=== PATIENT | female | born 1945 | race American Indian/Alaskan Native ===

== ENCOUNTER 2017-10-31 07:56 | Day surgery (SDC) | payer MEDICARE ==
[2017-10-31] MEDS ORDERED: HURRICAINE ONE 20% TOPICAL SPRAY MM NR (09:00)
[2017-10-31 09:08] LABS: Basophils % (Auto) 0.7 % (0.0-1.8); Eosinophils # (Auto) 0.1 K/mm3 (0.0-0.4); Eosinophils % (Auto) 1.4 % (0.0-4.3); Hematocrit 39.3 % (30.3-42.9); Hemoglobin 13.3 gm/dl (10.1-14.3); Lymphocytes # (Auto) 1.5 K/mm3 (1.2-5.4); Lymphocytes % (Auto) 20.2 % (13.4-35.0); Mean Corpuscular HGB Conc 34 % (30-34); Mean Corpuscular Hemoglobin 32 pg (28-32); Mean Corpuscular Volume 94 fl (79-97); Monocytes # (Auto) 0.5 K/mm3 (0.0-0.8); Monocytes % (Auto) 7.1 % (0.0-7.3); Platelet Count 240 K/mm3 (140-440); Red Blood Count 4.17 M/mm3 (3.65-5.03); Red Cell Distribution Width 14.2 % (13.2-15.2)
[2017-10-31 09:19] LABS: INR 1.54 (0.87-1.13)
[2017-10-31 09:20] LABS: Partial Thromboplastin Time 38.5 Sec. (24.2-36.6)
[2017-10-31] MEDS ORDERED: VERSED IV ONE (09:30)
[2017-10-31] MEDS ORDERED: SUBLIMAZE IV ONE (09:30)
[2017-10-31] MEDS ORDERED: NACL 0.9% 500 ML 500 ML IV SCH (10:00)
[2017-10-31] MEDS ORDERED: DIPRIVAN 10 MG/ML IV ONE ×2 (10:36→10:37)
--- NOTE | 2017-10-31 12:12 | Short Stay Summary ---
Short Stay Documentation Date of service: 10/31/17 - History H&P: obtained from office - Allergies and Medications Current Medications: Allergies azilsartan Adverse Reaction (Verified 10/31/17 09:09) Unknown Home Medications Medication Instructions Recorded Confirmed Last Taken Type Hydrocodone Bit/Acetaminophen 1 each PO Q8H PRN 06/29/13 10/31/17 06/29/13 History [Vicodin 5/500] Aspirin [Aspirin BABY CHEW TAB] 81 mg PO DAILY #100 tab.chew 07/01/13 10/31/17 10/30/17 Rx 81mg Valsartan [Diovan] 320 mg PO QDAY 07/18/14 10/31/17 10/30/17 History 320mg ALBUTEROL Inhaler [ProAir HFA 2 puff IH QID PRN #1 inha 07/22/14 10/31/17 Rx Inhaler] 2 Citalopram Hydrobromide [celeXA] 40 mg PO DAILY #30 tablet 07/22/14 10/31/1712/16 Rx 40mg Furosemide [Lasix TAB] 40 mg PO QDAY #30 tablet 07/22/14 10/31/17 10/30/17 Rx 40mg Metoprolol [Lopressor TAB] 25 mg PO Q24HR #30 tablet 07/22/14 10/31/17 10/30/17 Rx 25mg Potassium Chloride 20 meq PO QDAY #30 tab 07/22/14 10/31/17 10/30/17 Rx 20meq Simvastatin 20 mg PO QDAY #30 tablet 07/22/14 10/31/17 10/30/17 Rx 20mg Warfarin [Coumadin] 5 mg PO DAILY 10/31/17 10/31/17 10/30/17 History 5mg amLODIPine [Norvasc] 10 mg PO DAILY 10/31/17 10/31/17 10/30/17 History 10mg Active Medications Sodium Chloride (Nacl 0.9% 500 Ml) 500 mls @ 50 mls/hr IV DIRECT FATEMEH - Physical exam General appearance: no acute distress Integumentary: no rash HEENT: Atraumatic Lungs: Clear to auscultation Breasts: deferred Heart: Regular rate Gastrointestinal: normal Female Genitourinary: deferred Rectal Exam: deferred Extremities: no ischemia Neurological: Normal gait - Brief post op/procedure progress note Date of procedure: 10/31/17 Pre-op diagnosis: MR Post-op diagnosis: same Procedure: BANDAR Anesthesia: MAC Findings: See report Surgeon: HILARIO HERNÁNDEZ Estimated blood loss: none Pathology: none Condition: stable - Hospital course Hospital course: Uneventful - Disposition Condition at discharge: Good Disposition: DC-01 TO HOME OR SELFCARE Short Stay Discharge Plan Activity: advance as tolerated Weight Bearing Status: Weight Bear as Tolerated Diet: low fat, low cholesterol, low salt Follow up with: MITCHEL SALMERON MD [Primary Care Provider] - 7 Days
[2017-10-31 13:00] VITALS: BP 152/79
--- NOTE | 2017-10-31 16:21 | Anesthesia Consultation ---
Anesthesia Consult and Med Hx Date of service: 10/31/17 - Airway Anesthetic Teeth Evaluation: Good ROM Head & Neck: Adequate Mental/Hyoid Distance: Adequate Mallampati Class: Class II Intubation Access Assessment: Probably Good - Pulmonary Exam CTA: Yes - Cardiac Exam Cardiac Exam: RRR - Pre-Operative Health Status ASA Pre-Surgery Classification: ASA3 Proposed Anesthetic Plan: MAC - Pre-Anesthesia Comment Pre-Anesthesia Comments: EF 60% - Pulmonary SOB: Yes Hx Sleep Apnea: Yes (pulm htn) - Cardiovascular System Hx Hypertension: Yes Hx Pacemaker: Yes Hx Valvular Heart Disease: Yes (MR ) Hx Heart Murmur: Yes - Central Nervous System CVA: Yes - Gastrointestinal Hx Gastroesophageal Reflux Disease: Yes
--- NOTE | 2017-10-31 16:22 | Anesthesia Day of Surgery ---
Anesthesia Day of Surgery - Day of Surgery Patient Examined: Yes Patient H&P Reviewed: Yes Patient is NPO: Yes Beta Blockers: Yes
== END 2017-10-31 13:14 | disposition home or self-care (01) ==
LOC: CATHLABREC 07:56 → EDSTATUS 08:30 → CATHLABREC 13:14
PROVIDERS: ATTEND Internal Medicine
DX: I34.0 Nonrheumatic mitral (valve) insufficiency (principal); I10 Essential (primary) hypertension; I27.20 Pulmonary hypertension, unspecified; G47.30 Sleep apnea, unspecified; K21.9 Gastro-esophageal reflux disease without esophagitis; Z95.0 Presence of cardiac pacemaker; Z79.01 Long term (current) use of anticoagulants; Z86.73 Personal history of transient ischemic attack (TIA), and cerebral infarction without residual deficits
CPT/HCPCS: 36415; 85025; 85610; 85730; 93312; 93320; 93325; J2704; J7040

== ENCOUNTER 2019-02-01 10:37 | Emergency (ER) | payer MEDICARE ==
--- NOTE | 2019-02-01 11:43 | Emergency Department Report ---
HPI - General Chief Complaint: Arrhythmia/Palpitations Time Seen by Provider: 02/01/19 11:24 - HPI HPI: Room 3 The patient is a 74-year-old female presenting with a chief complaint right arm pain after fall. Family states yesterday morning at approximately 03:00 the patient tripped over a pillow and fell landing on her right side. Patient has had pain in her entire right arm since the fall. Patient has history of atrial fibrillation states she felt some fluttering in her chest since yesterday. Patient states she has been compliant with her Coumadin. Patient currently denies palpitations but gives her right arm pain a score of 8-9/10 Location: Right arm Duration: [See above] Quality: Pain Severity:8-9/10 Modifying factors: [see above] Context: [see above] Mode of transportation: [not driving] ED Past Medical Hx - Past Medical History Previous Medical History?: Yes Hx Hypertension: Yes Hx CVA: Yes Hx Heart Attack/AMI: Yes Hx Congestive Heart Failure: Yes (Dx. in 2006) Hx Arthritis: Yes Hx Asthma: Yes Additional medical history: high cholesterol - Surgical History Past Surgical History?: Yes Hx Pacemaker: Yes Additional Surgical History: back surgery - Family History Family history: no significant - Social History Smoking Status: Former Smoker (none 30 years) Substance Use Type: None - Medications Home Medications: Home Medications Medication Instructions Recorded Confirmed Last Taken Type Hydrocodone Bit/Acetaminophen 1 each PO Q8H PRN 06/29/13 10/31/17 06/29/13 History [Vicodin 5/500] Aspirin [Aspirin BABY CHEW TAB] 81 mg PO DAILY #100 tab.chew 07/01/13 10/31/17 10/30/17 Rx 81mg Valsartan [Diovan] 320 mg PO QDAY 07/18/14 10/31/17 10/30/17 History 320mg ALBUTEROL Inhaler (OR & NICU) 2 puff IH QID PRN #1 inha 07/22/14 10/31/17 10/30/17 Rx [ProAir HFA Inhaler] 2 Citalopram Hydrobromide [celeXA] 40 mg PO DAILY #30 tablet 07/22/14 10/31/17 10/30/17 Rx 40mg Furosemide [Lasix TAB] 40 mg PO QDAY #30 tablet 09/10/31/17 10/30/17 Rx 40mg Metoprolol [Lopressor TAB] 25 mg PO Q24HR #30 tablet 07/22/14 10/31/17 10/30/17 Rx 25mg Potassium Chloride 20 meq PO QDAY #30 tab 07/22/14 10/31/17 10/30/17 Rx 20meq Simvastatin 20 mg PO QDAY #30 tablet 07/22/14 10/31/17 10/30/17 Rx 20mg Warfarin [Coumadin] 5 mg PO DAILY 10/31/17 10/31/17 10/30/17 History 5mg amLODIPine [Norvasc] 10 mg PO DAILY 10/31/17 10/31/17 10/30/17 History 10mg HYDROcodone/APAP 5-325 [[place] 1 - 2 each PO Q6HR PRN #14 tablet 02/01/19 Unknown Rx 5/325] ED Review of Systems ROS: Stated complaint: FALL INJURY/RT SIDE PAIN Other details as noted in HPI Constitutional: no symptoms reported Eyes: denies: eye pain ENT: denies: throat pain Respiratory: no symptoms reported Cardiovascular: palpitations Endocrine: no symptoms reported Gastrointestinal: denies: abdominal pain Genitourinary: denies: dysuria Musculoskeletal: arthralgia, myalgia Neurological: denies: headache Physical Exam - Physical Exam Vital Signs: Vital Signs 02/01/19 02/01/19 02/01/19 10:42 11:20 11:21 Temperature 97.6 F Pulse Rate 90 78 83 Respiratory 18 10 L 10 L Rate Blood Pressure 123/58 O2 Sat by Pulse 96 Oximetry 02/01/19 02/01/19 02/01/19 11:22 11:24 11:25 Temperature Pulse Rate 80 88 79 Respiratory 11 L 14 22 Rate Blood Pressure 176/94 O2 Sat by Pulse 98 99 Oximetry Physical Exam: GENERAL: The patient is well-developed well-nourished female lying on stretcher not appearing to be in acute distress. [] HEENT: Normocephalic. Atraumatic. Extraocular motions are intact. Patient has moist mucous membranes. NECK: Supple. Trachea midline CHEST/LUNGS: Clear to auscultation. There is no respiratory distress noted. HEART/CARDIOVASCULAR: Irregularly irregular. There is no tachycardia. There is no gallop rub or murmur. 2+ right radial pulse ABDOMEN: Abdomen is soft, nontender. Patient has normal bowel sounds. There is no abdominal distention. SKIN: There is no rash. There is no edema. There is no diaphoresis. NEURO: The patient is awake, alert, and oriented. The patient is cooperative. The patient has no focal neurologic deficits. The patient has normal speech MUSCULOSKELETAL: There is tenderness of the right shoulder, right humerus and right forearm. ED Course Vital Signs 02/01/19 02/01/19 02/01/19 10:42 11:20 11:21 Temperature 97.6 F Pulse Rate 90 78 83 Respiratory 18 10 L 10 L Rate Blood Pressure 123/58 O2 Sat by Pulse 96 Oximetry 02/01/19 02/01/19 02/01/19 11:22 11:24 11:25 Temperature Pulse Rate 80 88 79 Respiratory 11 L 14 22 Rate Blood Pressure 176/94 O2 Sat by Pulse 98 99 Oximetry - Moderate Sedation Indications: fracture/dislocation redu ASA Class: II Mallampati Airway Score: 2 Preparation: night monitor applied, pulse oximeter, capnometry used, supplemental O2 applied, suction/airway equipment at bedside, IV secured IV Etomidate Dose (mgs): 12 Complications: none Patient Tolerated Procedure: no complications - Orthopedic Joint Reduction Joint #1 Consent Obtained: verbal consent Time Out Performed: No Side: right Joint Reduction Location: shoulder Analgesia: moderate sedation Shoulder Technique Used (if applicable): traction/counter-traction Technique Used: traction/counter-traction Post-Reduction Neuro Exam: intact Post-Reduction Vascular Exam: intact Post Reduction X-Ray Obtained: Yes Post Reduction X-Ray Results: reduced Splint Applied: Yes Patient Tolerated Procedure: no complications ED Medical Decision Making - Lab Data Result diagrams: 02/01/19 11:39 02/01/19 11:39 Laboratory Tests 02/01/19 02/01/19 02/01/19 11:39 11:39 11:39 WBC 11.0 RBC 4.53 Hgb 14.3 Hct 42.4 MCV 94 MCH 32 MCHC 34 RDW 14.4 Plt Count 232 Lymph % (Auto) 12.2 L [place] % (Auto) 5.9 Eos % (Auto) 0.1 Baso % (Auto) 0.2 Lymph # 1.3 [place] # 0.7 Eos # 0.0 Baso # 0.0 Seg Neutrophils % 81.6 H Seg Neutrophils # 9.0 H PT 26.7 H INR 2.28 H APTT 39.0 H Sodium 139 Potassium 4.0 Chloride 100.3 Carbon Dioxide 23 Anion Gap 20 BUN 6 L Creatinine 0.6 L Estimated GFR > 60 BUN/Creatinine Ratio 10 Glucose 142 H Calcium 9.4 - EKG Data -: EKG Interpreted by Me Rate: normal - EKG Data When compared to previous EKG there are: previous EKG unavailable Interpretation: other (EKG reveals atrial fibrillation rate controlled at 83 bpm. PVC) - Radiology Data Radiology results: report reviewed (right shoulder x-ray #1, right humerus x- ray, right forearm x-ray, right hand x-ray), image reviewed (right shoulder x- ray #1, right shoulder x-ray #2, right humerus x-ray, right forearm x-ray, right hand x-ray) interpreted by me: Right shoulder y-hne-zovksxop dislocation, no fracture Right humerus h-oex-vkqttnya dislocation, no acute fracture Right forearm x-ray-no acute fracture Right hand x-ray-no acute fracture Right shoulder x-ray #2-no fracture, no dislocation [facility] [address] [place] [address] XRay Report Signed Patient: CHARMAINE BOUCHER MR#: [id number] : 1945 Acct:[id number] Age/Sex: 74 / F ADM Date: 02/01/19 Loc: ED Attending Dr: Ordering Physician: DAKOTA ANGELA MD Date of Service: 02/01/19 Procedure(s): XR shoulder 1V RT Accession Number(s): [id number] cc: DAKOTA ANGELA MD Fluoro Time In Minutes: PROCEDURE: XR SHOULDER 1V RT TECHNIQUE: Right shoulder, one view HISTORY: pain after fall COMPARISONS: None FINDINGS: Single transscapular Y view of the right shoulder is submitted. There is anterior dislocation of the right humeral head. No obvious fractures are seen IMPRESSION: Anterior dislocation of the right humeral head. This document is electronically signed by Brigitte Lira MD., February 01 2019 01:50:22 PM ET Transcribed By: [facility] Dictated By: BRIGITTE LIRA M.D. Electronically Authenticated By: BRIGITTE LIRA M.D. Signed Date/Time: 02/01/19 1352 DD/ 46 TD/TT: 02/01/[address] [place] [id number] XRay Report Signed Patient: CHARMAINE BOUCHER MR#: [id number] : 1945 Acct:[id number] Age/Sex: 74 / F ADM Date: 02/01/19 Loc: ED Attending Dr: Ordering Physician: DAKOTA ANGELA MD Date of Service: 02/01/19 Procedure(s): XR humerus 2+V RT Accession Number(s): [id number] cc: DAKOTA ANGELA MD Fluoro Time In Minutes: PROCEDURE: XR HUMERUS 2+V RT TECHNIQUE: Right humerus, 2 views HISTORY: pain after fall COMPARISONS: None FINDINGS: There is anterior dislocation of the humeral head. No acute fracture is visualized. IMPRESSION: Anterior dislocation of the right humeral head. This document is electronically signed by Brigitte Lira MD., February 01 2019 01:48:19 PM ET Transcribed By: [facility] Dictated By: BRIGITTE LIRA M.D. Electronically Authenticated By: BRIGITTE LIRA M.D. Signed Date/Time: 02/01/19 1350 DD/ 46 TD/TT: 02/01/19 [facility] [address] [address] XRay Report Signed Patient: CHARMAINE BOUCHER MR#: [id number] : 1945 Acct:[id number] Age/Sex: 74 / F ADM Date: 02/01/19 Loc: ED Attending Dr: Ordering Physician: DAKOTA ANGELA MD Date of Service: 02/01/19 Procedure(s): XR hand 3+V RT Accession Number(s): [id number] cc: DAKOTA ANGELA MD Fluoro Time In Minutes: PROCEDURE: XR HAND 3+V RT TECHNIQUE: Right hand, 3 views HISTORY: pain after fall COMPARISONS: None available FINDINGS: No fracture or dislocation. No focal osseous lesions. No radiopaque foreign body. IMPRESSION: No fracture or dislocation. This document is electronically signed by Brigitte Lira MD., February 01 2019 01:51:32 PM ET Transcribed By: [facility] Dictated By: BRIGITTE LIRA M.D. Electronically Authenticated By: BRIGITTE LIRA M.D. Signed Date/Time: 02/01/19 1353 DD/ 1248 TD/TT: 02/01/19 1248 [facility] [address] [place] [address] XRay Report Signed Patient: CHARMAINE BOUCHER MR#: [id number] : 1945 Acct:[id number] Age/Sex: 74 / F ADM Date: 02/01/19 Loc: ED Attending Dr: Ordering Physician: DAKOTA ANGELA MD Date of Service: 02/01/19 Procedure(s): XR forearm RT Accession Number(s): [id number] cc: DAKOTA ANGELA MD Fluoro Time In Minutes: PROCEDURE: XR FOREARM RT TECHNIQUE: Right forearm, 2 views HISTORY: pain after fall COMPARISONS: None available FINDINGS: No acute fracture or dislocation. No focal osseous lesions. No radiopaque foreign body. IMPRESSION: No acute osseous abnormality is identified. This document is electronically signed by Brigitte Lira MD., February 01 2019 01:47:16 PM ET Transcribed By: [facility] Dictated By: BRIGITTE LIRA M.D. Electronically Authenticated By: BRIGITTE RIOJAS M.D. Signed Date/Time: 02/01/19 1349 DD/ 1245 TD/TT: 02/01/19 1245 - Differential Diagnosis shoulder contusion, shoulder fracture, A. fib with RVR Critical care attestation.: If time is entered above; I have spent that time in minutes in the direct care of this critically ill patient, excluding procedure time. ED Disposition Clinical Impression: Acute pain of right shoulder, Dislocation of right shoulder joint, Atrial fibrillation Disposition: - TO HOME OR SELFCARE Is pt being admited?: No Does the pt Need Aspirin: No Condition: Stable Instructions: Shoulder Dislocation (ED) Additional Instructions: Return to the emergency department immediately should you develop worsening symptoms, fever, inability to tolerate food or liquid or any other concerns. Prescriptions: HYDROcodone/APAP 5-325 [[place] 5/325] 1 - 2 each PO Q6HR PRN #14 tablet PRN Reason: Pain Referrals: YONIS WHALEY MD [Staff Physician] - 3-5 Days (Dr. Whaley is an orthopedic surgeon. Please follow up with him for further evaluation) Time of Disposition: 14:30
[2019-02-01 12:05] LABS: Basophils % (Auto) 0.2 % (0.0-1.8); Eosinophils % (Auto) 0.1 % (0.0-4.3); Hematocrit 42.4 % (30.3-42.9); Hemoglobin 14.3 gm/dl (10.1-14.3); Lymphocytes # (Auto) 1.3 K/mm3 (1.2-5.4); Lymphocytes % (Auto) 12.2 % (13.4-35.0); Mean Corpuscular HGB Conc 34 % (30-34); Mean Corpuscular Volume 94 fl (79-97); Monocytes # (Auto) 0.7 K/mm3 (0.0-0.8); Monocytes % (Auto) 5.9 % (0.0-7.3); Platelet Count 232 K/mm3 (140-440); Red Blood Count 4.53 M/mm3 (3.65-5.03); Red Cell Distribution Width 14.4 % (13.2-15.2)
[2019-02-01 12:30] LABS: BUN/Creatinine Ratio 10; Blood Urea Nitrogen 6 mg/dL (7-17); Calcium 9.4 mg/dL (8.4-10.2); Hemolysis Index 16
[2019-02-01 12:41] LABS: INR 2.28 (0.87-1.13)
[2019-02-01] MEDS ORDERED: AMIDATE IV ONE (13:42)
--- NOTE | 2019-02-01 13:49 | XRay Report ---
PROCEDURE: XR FOREARM RT TECHNIQUE: Right forearm, 2 views HISTORY: pain after fall COMPARISONS: None available FINDINGS: No acute fracture or dislocation. No focal osseous lesions. No radiopaque foreign body. IMPRESSION: No acute osseous abnormality is identified. This document is electronically signed by Brigitte Lira MD., February 01 2019 01:47:16 PM ET
--- NOTE | 2019-02-01 13:50 | XRay Report ---
PROCEDURE: XR HUMERUS 2+V RT TECHNIQUE: Right humerus, 2 views HISTORY: pain after fall COMPARISONS: None FINDINGS: There is anterior dislocation of the humeral head. No acute fracture is visualized. IMPRESSION: Anterior dislocation of the right humeral head. This document is electronically signed by Brigitte Lira MD., February 01 2019 01:48:19 PM ET
--- NOTE | 2019-02-01 13:52 | XRay Report ---
PROCEDURE: XR SHOULDER 1V RT TECHNIQUE: Right shoulder, one view HISTORY: pain after fall COMPARISONS: None FINDINGS: Single transscapular Y view of the right shoulder is submitted. There is anterior dislocation of the right humeral head. No obvious fractures are seen IMPRESSION: Anterior dislocation of the right humeral head. This document is electronically signed by Brigitte Lira MD., February 01 2019 01:50:22 PM ET
--- NOTE | 2019-02-01 13:53 | XRay Report ---
PROCEDURE: XR HAND 3+V RT TECHNIQUE: Right hand, 3 views HISTORY: pain after fall COMPARISONS: None available FINDINGS: No fracture or dislocation. No focal osseous lesions. No radiopaque foreign body. IMPRESSION: No fracture or dislocation. This document is electronically signed by Brigitte Lira MD., February 01 2019 01:51:32 PM ET
[2019-02-01 14:51] VITALS: BP 168/83
--- NOTE | 2019-02-01 15:04 | XRay Report ---
EXAM: XR SHOULDER 1V RT HISTORY: s/p reduction TECHNIQUE: 2 views COMPARISON: None available. FINDINGS: There is no acute bony fracture, or joint subluxation or dislocation seen. No evidence for inflammat ory or degenerative arthritis is seen. The glenohumeral joint and acromioclavicular joint are intact. No focal bone erosion or sclerosis is seen. No soft tissue emphysema, radiodense soft tissue abnorm ality or foreign body is seen. No incidental apical lung infiltrate, contusion, or pneumothorax is se en. IMPRESSION: 1. No acute bony fracture, or joint subluxation or dislocation seen. 2. No radiodense soft tissue abnormality or foreign body seen. This document is electronically signed by Morgan Dodge MD., February 01 2019 03:03:03 PM ET
== END 2019-02-01 14:51 | disposition home or self-care (01) ==
LOC: ED 10:37
DX: S43.004A Unspecified dislocation of right shoulder joint, initial encounter (principal); I25.2 Old myocardial infarction; I11.0 Hypertensive heart disease with heart failure; I50.9 Heart failure, unspecified; M19.90 Unspecified osteoarthritis, unspecified site; J45.909 Unspecified asthma, uncomplicated; E78.00 Pure hypercholesterolemia, unspecified; Z87.891 Personal history of nicotine dependence; W18.30XA Fall on same level, unspecified, initial encounter; Y93.89 Activity, other specified; Y92.89 Other specified places as the place of occurrence of the external cause; Y99.8 Other external cause status
CPT/HCPCS: 36415; 80048; 85025; 85610; 85730; 93005; 93010

== ENCOUNTER 2019-04-02 09:42 | Outpatient (CLI) | payer MEDICARE ==
--- NOTE | 2019-04-02 13:44 | Ultrasound Report ---
Sonogram of right 5th finger: History: Right hand evaluate flexor tendon a small finger. Findings: There is soft tissue swelling noted in the volar aspect of the right fifth finger. The tendon does not appear to reveal any definite evidence of fluid. No obvious tear is identified. The flow to the finger is biphasic. Normal flow should be triphasic. Impression: Findings as detailed above.
== END 2019-04-02 09:43 | disposition home or self-care (01) ==
LOC: US 09:42
PROVIDERS: ATTEND Physician Assistant Medical
DX: M25.441 Effusion, right hand (principal); E11.9 Type 2 diabetes mellitus without complications; E78.5 Hyperlipidemia, unspecified; I11.0 Hypertensive heart disease with heart failure; I50.9 Heart failure, unspecified; K21.9 Gastro-esophageal reflux disease without esophagitis; J44.9 Chronic obstructive pulmonary disease, unspecified

== ENCOUNTER 2019-08-15 10:02 | Day surgery (SDC) | payer MEDICARE ==
[2019-08-15 10:52] LABS: Basophils % (Auto) 0.6 % (0.0-1.8); Eosinophils # (Auto) 0.1 K/mm3 (0.0-0.4); Eosinophils % (Auto) 1.3 % (0.0-4.3); Hematocrit 41.7 % (30.3-42.9); Hemoglobin 14.2 gm/dl (10.1-14.3); Lymphocytes # (Auto) 1.6 K/mm3 (1.2-5.4); Lymphocytes % (Auto) 21.2 % (13.4-35.0); Mean Corpuscular HGB Conc 34 % (30-34); Mean Corpuscular Volume 96 fl (79-97); Monocytes # (Auto) 0.5 K/mm3 (0.0-0.8); Platelet Count 231 K/mm3 (140-440); Red Blood Count 4.36 M/mm3 (3.65-5.03); Red Cell Distribution Width 14.8 % (13.2-15.2)
[2019-08-15] MEDS ORDERED: SODIUM CHLORIDE 0.9% 500 ML 500 ML IV SCH (11:00)
[2019-08-15] MEDS ORDERED: BENZOCAINE 20% TOP SPRAY 0.5 ML UNIT DOSE MM NR (11:00)
[2019-08-15 11:04] LABS: BUN/Creatinine Ratio 24; Blood Urea Nitrogen 17 mg/dL (7-17); Calcium 9.4 mg/dL (8.4-10.2); Hemolysis Index 32
[2019-08-15] MEDS ORDERED: PROPOFOL 200 MG/20 ML VIAL IV ONE (11:09)
[2019-08-15 11:19] LABS: INR 1.7 (0.87-1.13); Partial Thromboplastin Time 33.9 Sec. (24.2-36.6)
--- NOTE | 2019-08-15 11:19 | Anesthesia Consultation ---
Anesthesia Consult and Med Hx Date of service: 08/15/19 - Airway Anesthetic Teeth Evaluation: Poor ROM Head & Neck: Inadequate (mildly restricted extension) Mental/Hyoid Distance: Adequate Mallampati Class: Class II Intubation Access Assessment: Possibly Difficult - Pulmonary Exam CTA: Yes - Cardiac Exam Cardiac Exam: RRR - Pre-Operative Health Status ASA Pre-Surgery Classification: ASA3 Proposed Anesthetic Plan: MAC - Pulmonary Hx Smoking: Yes (quit 10yrs ago) SOB: Yes (2/2 new onset a-fib) COPD: Yes (used advair this morning; no recent exacerbations) Home Oxygen Therapy: No Hx Sleep Apnea: Yes (compliant with CPAP) - Cardiovascular System Hx Hypertension: Yes Hx Heart Attack/AMI: Yes (?>2yrs ago; no stents or CABG) Hx Angina: No Hx Cardia Arrhythmia: Yes (sick sinus syndrome and new onset a-fib; on coumadin) Hx Pacemaker: Yes Hx Internal Defibrillator: No Hx Valvular Heart Disease: Yes (mitral regurgitation) - Central Nervous System CVA: Yes (TIA 2 yrs ago) - Endocrine Hx Renal Disease: No Hx Liver Disease: No Hx Insulin Dependent Diabetes: No Hx Non-Insulin Dependent Diabetes: No Hx Thyroid Disease: No - Other Systems Hx Cancer: No Hx Obesity: Yes - Additional Comments Anesthesia Medical History Comments: No hx anesthetic complications. Scheduled for BANDAR with cardioversion for symptomatic new onset a-fib. EF 55% on TTE 2018
--- NOTE | 2019-08-15 11:20 | Anesthesia Day of Surgery ---
Anesthesia Day of Surgery - Day of Surgery Patient Examined: Yes Patient H&P Reviewed: Yes Patient is NPO: Yes Beta Blockers: Yes
[2019-08-15] MEDS ORDERED: ENOXAPARIN 100 MG/1 ML INJ SUB-Q SCH (12:00)
--- NOTE | 2019-08-15 12:25 | Short Stay Summary ---
Short Stay Documentation Date of service: 08/15/19 - History H&P: obtained from office - Allergies and Medications Current Medications: Allergies azilsartan Adverse Reaction (Verified 10/31/17 09:09) Unknown Home Medications Medication Instructions Recorded Confirmed Last Taken Type Hydrocodone Bit/Acetaminophen 1 each PO Q8H PRN 06/29/13 10/31/17 06/29/13 History [Vicodin 5/500] Aspirin [Aspirin BABY CHEW TAB] 81 mg PO DAILY #100 tab.chew 07/01/13 10/31/17 10/30/17 Rx 81 mg Valsartan [Diovan] 320 mg PO QDAY 07/18/14 10/31/17 10/30/17 History 320 mg ALBUTEROL Inhaler (OR & NICU) 2 puff IH QID PRN #1 inha 07/22/14 10/31/17 10/30/17 Rx [ProAir HFA Inhaler] 2 Citalopram Hydrobromide [celeXA] 40 mg PO DAILY #30 tablet 07/22/14 10/31/17 10/30/17 Rx 40 mg Furosemide [Lasix TAB] 40 mg PO QDAY #30 tablet 07/22/14 10/31/17 10/30/17 Rx 40 mg Metoprolol [Lopressor TAB] 25 mg PO Q24HR #30 tablet 07/22/14 10/31/17 10/30/17 Rx 25 mg Potassium Chloride 20 meq PO QDAY #30 tab 07/22/14 10/31/17 10/30/17 Rx 20 meq Simvastatin 20 mg PO QDAY #30 tablet 07/22/14 10/31/17 10/30/17 Rx 20 mg Warfarin [Coumadin] 5 mg PO DAILY 10/31/17 10/31/17 10/30/17 History 5 mg amLODIPine [Norvasc] 10 mg PO DAILY 10/31/17 10/31/17 10/30/17 History 10 mg HYDROcodone/APAP 5-325 [[place] 1 - 2 each PO Q6HR PRN #14 tablet 02/01/19 Unknown Rx 5/325] Active Medications Benzocaine (Hurricaine One 20% Topical [place]) 3 spray MM PREOP NR Stop: 08/16/19 23:59 Last Admin: 08/15/19 12:08 Dose: 3 spray Documented by: Enoxaparin Sodium (Lovenox) 100 mg 1 mg/kg (100 mg) SUB-Q Q12HR FATEMEH Sodium Chloride (Nacl 0.9% 500 Ml) 500 mls @ 50 mls/hr IV DIRECT FATEMEH Last Admin: 08/15/19 12:11 Dose: 50 mls/hr Documented by: - Physical exam General appearance: no acute distress Integumentary: no rash HEENT: Atraumatic Lungs: Clear to auscultation Breasts: deferred Heart: Regular rate Gastrointestinal: normal Female Genitourinary: deferred Rectal Exam: deferred Extremities: no ischemia Neurological: Normal gait - Brief post op/procedure progress note Date of procedure: 08/15/19 Pre-op diagnosis: Atrial fibrillation, mitral Post-op diagnosis: same Procedure: BANDAR guided CV Anesthesia: MAC Findings: See report Surgeon: HILARIO HERNÁNDEZ Estimated blood loss: none Pathology: none Condition: stable - Hospital course Hospital course: Uneventful - Disposition Condition at discharge: Good Disposition: DC-01 TO HOME OR SELFCARE Short Stay Discharge Plan Activity: advance as tolerated Weight Bearing Status: Weight Bear as Tolerated Diet: low fat, low cholesterol, low salt Follow up with: SALVADOR GR MD [Primary Care Provider] - 7 Days
--- NOTE | 2019-08-15 12:58 | Post Anesthesia Evaluation ---
- Post Anesthesia Evaluation Patient Participated: Yes Airway Patent: Yes Stable Respiratory Function: Yes Nausea/Vomiting: No Temp > 96.8F: Yes Pain Manageable: Yes Adequeate Hydration: Yes Anesthesia Complications: No
[2019-08-15 14:18] VITALS: BP 138/73
--- NOTE | 2019-08-15 22:44 | Procedure Note ---
CARDIOVERSION REPORT INDICATION FOR THIS PROCEDURE: Atrial fibrillation. DESCRIPTION OF PROCEDURE: After obtaining the consent and after documenting the absence of left atrial appendage clot, the patient was deeply sedated with propofol in the presence of anesthesia staff. A 200 joule synchronized shock was administered with successful cardioversion from atrial fibrillation into normal sinus rhythm. No complications occurred during the procedure. IMPRESSION: Successful cardioversion from atrial fibrillation to normal sinus rhythm. RECOMMENDATION: Continue current management. JOB# [id number] PO/TANESHA
== END 2019-08-15 14:59 | disposition home or self-care (01) ==
LOC: CATHLABREC 10:02 → EDSTATUS 11:30 → CATHLABREC 14:59
PROVIDERS: ATTEND Internal Medicine
DX: I48.0 Paroxysmal atrial fibrillation (principal); I08.1 Rheumatic disorders of both mitral and tricuspid valves; E78.5 Hyperlipidemia, unspecified; E11.9 Type 2 diabetes mellitus without complications; I11.0 Hypertensive heart disease with heart failure; I50.9 Heart failure, unspecified; J44.9 Chronic obstructive pulmonary disease, unspecified; I42.9 Cardiomyopathy, unspecified; E66.9 Obesity, unspecified; G62.9 Polyneuropathy, unspecified; M19.90 Unspecified osteoarthritis, unspecified site; F32.9 Major depressive disorder, single episode, unspecified; G47.30 Sleep apnea, unspecified; Z95.0 Presence of cardiac pacemaker; Z79.899 Other long term (current) drug therapy; Z79.01 Long term (current) use of anticoagulants; Z79.82 Long term (current) use of aspirin; Z87.891 Personal history of nicotine dependence; Z68.37 Body mass index [BMI] 37.0-37.9, adult; Z98.890 Other specified postprocedural states; Z82.49 Family history of ischemic heart disease and other diseases of the circulatory system; Z88.8 Allergy status to other drugs, medicaments and biological substances; Z86.73 Personal history of transient ischemic attack (TIA), and cerebral infarction without residual deficits
CPT/HCPCS: 36415; 80048; 85025; 85610; 85730; 93005; 93010; 93312; 93320; 93325; 96372; J1650; J2704; J7040; 92960

== ENCOUNTER 2019-09-29 19:01 | Inpatient (IN) | payer MEDICARE ==
--- NOTE | 2019-09-29 19:38 | Emergency Department Report ---
Blank Doc - Documentation Documentation: 74-year-old female that presents with chest pain and SOB. Was sent by her PCP. This initial assessment/diagnostic orders/clinical plan/treatment(s) is/are subject to change based on patient's health status, clinical progression and re- assessment by fellow clinical providers in the ED. Further treatment and workup at subsequent clinical providers discretion. Patient/guardians urged not to elope from the ED as their condition may be serious if not clinically assessed and managed. Initial orders include: 1- Patient sent to MAIN ED for further evaluation and treatment 2- labs 3- EKG 4- CXR
[2019-09-29 20:15] LABS: Basophils # (Auto) 0.1 K/mm3 (0.0-0.1); Basophils % (Auto) 0.8 % (0.0-1.8); Eosinophils # (Auto) 0.2 K/mm3 (0.0-0.4); Eosinophils % (Auto) 3.3 % (0.0-4.3); Hematocrit 36.9 % (30.3-42.9); Hemoglobin 12.3 gm/dl (10.1-14.3); Lymphocytes # (Auto) 1.6 K/mm3 (1.2-5.4); Lymphocytes % (Auto) 22.5 % (13.4-35.0); Mean Corpuscular HGB Conc 33 % (30-34); Mean Corpuscular Volume 98 fl (79-97); Monocytes # (Auto) 0.5 K/mm3 (0.0-0.8); Monocytes % (Auto) 7.1 % (0.0-7.3); Platelet Count 196 K/mm3 (140-440); Red Blood Count 3.78 M/mm3 (3.65-5.03); Red Cell Distribution Width 15.6 % (13.2-15.2)
[2019-09-29 20:26] LABS: INR 1.34 (0.87-1.13)
[2019-09-29 20:27] LABS: Partial Thromboplastin Time 33.4 Sec. (24.2-36.6)
[2019-09-29 20:39] LABS: Alanine Aminotransferase 16 units/L (7-56); Albumin 3.7 g/dL (3.9-5); BUN/Creatinine Ratio 11; Blood Urea Nitrogen 9 mg/dL (7-17); Calcium 9.1 mg/dL (8.4-10.2); Hemolysis Index 18
--- NOTE | 2019-09-29 20:45 | XRay Report ---
CHEST 2 VIEWS INDICATION / CLINICAL INFORMATION: Chest Pain. COMPARISON: None FINDINGS: SUPPORT DEVICES: Left subclavian pacemaker leads HEART / MEDIASTINUM: Moderate cardiomegaly LUNGS / PLEURA: No significant pulmonary or pleural abnormality. No pneumothorax. ADDITIONAL FINDINGS: No significant additional findings. IMPRESSION: 1. Cardiomegaly without CHF Signer Name: Wayne Luna MD Signed: 09/29/2019 8:40 PM Workstation Name: [id number]
[2019-09-29] MEDS ORDERED: methylPREDNISolone Sod Succinate 125 MG/2 ML INJ IV ONE (22:14)
[2019-09-29] MEDS ORDERED: ALBUTEROL 2.5 MG/3 ML NEBU IH ONE (22:14)
[2019-09-29] MEDS ORDERED: FUROSEMIDE 40 MG/4 ML INJ IV ONE (22:14)
[2019-09-29] MEDS ORDERED: IPRATROPIUM 0.02% NEBU 2.5 ML IH ONE (22:14)
--- NOTE | 2019-09-29 22:18 | Emergency Department Report ---
ED Shortness of Breath HPI - General Chief Complaint: Dyspnea/Respdistress Stated Complaint: DIFFICULTY IN BREATHING, COUGH Time Seen by Provider: 09/29/19 19:37 Source: patient, family Mode of arrival: Ambulatory Limitations: No Limitations, Language Barrier - History of Present Illness Initial Comments: Patient is 74 years old female with history of COPD, congestive heart failure with ejection fraction of 30-40%. Patient presented to the ER complaining of shortness of breath for one week associated with cough, productive for greenish sputum. Patient stated that she was sent to the ER by Dr. Horton, mortgage processor for further evaluation. Patient stated that her symptoms as being ongoing for more than a week now. Patient denied any fever or chills. No chest pain. MD Complaint: shortness of breath, cough -: week(s) (1) Known History Of: COPD, congestive heart failure Treatments Prior to Arrival: bronchodilator - Related Data Home Medications Medication Instructions Recorded Confirmed Last Taken Hydrocodone Bit/Acetaminophen 1 each PO Q8H PRN 06/29/13 10/31/17 06/29/13 [Vicodin 5/500] Valsartan [Diovan] 320 mg PO QDAY 07/18/14 10/31/17 10/30/17 320 mg Warfarin [Coumadin] 5 mg PO DAILY 10/31/17 10/31/17 10/30/17 5 mg amLODIPine 10 mg PO DAILY 10/31/17 10/31/17 10/30/17 10 mg Previous Rx's Medication Instructions Recorded Last Taken Type Aspirin [Aspirin BABY CHEW TAB] 81 mg PO DAILY #100 tab.chew 07/01/13 10/30/17 Rx 81 mg ALBUTEROL Inhaler (OR & NICU) 2 puff IH QID PRN #1 inha 07/22/14 10/30/17 Rx [ProAir HFA Inhaler] 2 Citalopram Hydrobromide [celeXA] 40 mg PO DAILY #30 tablet 07/22/14 10/30/17 Rx 40 mg Furosemide [Lasix TAB] 40 mg PO QDAY #30 tablet 07/22/14 10/30/17 Rx 40 mg Metoprolol [Lopressor TAB] 25 mg PO Q24HR #30 tablet 07/22/14 10/30/17 Rx 25 mg Potassium Chloride 20 meq PO QDAY #30 tab 07/22/14 10/30/17 Rx 20 meq Simvastatin 20 mg PO QDAY #30 tablet 07/22/14 10/30/17 Rx 20 mg HYDROcodone/APAP 5-325 [[place] 1 - 2 each PO Q6HR PRN #14 tablet 02/01/19 Unknown Rx 5-325 mg TAB] Allergies Allergy/AdvReac Type Severity Reaction Status Date / Time azilsartan AdvReac Unknown Verified 10/31/17 09:09 ED Review of Systems ROS: Stated complaint: DIFFICULTY IN BREATHING, COUGH Other details as noted in HPI Comment: All other systems reviewed and negative Constitutional: denies: chills, fever Respiratory: cough, orthopnea, shortness of breath, SOB with exertion, SOB at rest, wheezing Cardiovascular: denies: chest pain, palpitations Gastrointestinal: denies: abdominal pain, nausea, vomiting Musculoskeletal: denies: back pain ED Past Medical Hx - Past Medical History Previous Medical History?: Yes Hx Hypertension: Yes Hx CVA: Yes Hx Heart Attack/AMI: Yes (?>2yrs ago; no stents or CABG) Hx Congestive Heart Failure: Yes (Dx. in 2006) Hx Diabetes: No Hx Deep Vein Thrombosis: No Hx Pulmonary Embolism: No Hx Liver Disease: No Hx Renal Disease: No Hx Sickle Cell Disease: No Hx Arthritis: Yes Hx Seizures: No Hx Kidney Stones: No Hx Asthma: Yes Hx COPD: Yes (used advair this morning; no recent exacerbations) Hx Tuberculosis: No Hx Dementia: No Hx HIV: No Additional medical history: high cholesterol, New onset Afib on Coumadin, Sleep Apnea use CPAP at night - Surgical History Past Surgical History?: Yes Hx Coronary Stent: No Hx Open Heart Surgery: No Hx Pacemaker: Yes Hx Internal Defibrillator: No Hx Cholecystectomy: No Hx Appendectomy: No Hx Breast Surgery: No Additional Surgical History: back surgery, Pacemaker, BANDAR with Cardioversion 2018 - Social History Smoking Status: Never Smoker - Medications Home Medications: Home Medications Medication Instructions Recorded Confirmed Last Taken Type Hydrocodone Bit/Acetaminophen 1 each PO Q8H PRN 06/29/13 10/31/17 06/29/13 History [Vicodin 5/500] Aspirin [Aspirin BABY CHEW TAB] 81 mg PO DAILY #100 tab.chew 07/01/13 10/31/17 10/30/17 Rx 81 mg Valsartan [Diovan] 320 mg PO QDAY 07/18/14 10/31/17 10/30/17 History 320 mg ALBUTEROL Inhaler (OR & NICU) 2 puff IH QID PRN #1 inha 07/22/14 10/31/17 10/30/17 Rx [ProAir HFA Inhaler] 2 Citalopram Hydrobromide [celeXA] 40 mg PO DAILY #30 tablet 07/22/14 10/31/17 10/30/17 Rx 40 mg Furosemide [Lasix TAB] 40 mg PO QDAY #30 tablet 07/22/14 10/31/17 10/30/17 Rx 40 mg Metoprolol [Lopressor TAB] 25 mg PO Q24HR #30 tablet 07/22/14 10/31/17 10/30/17 Rx 25 mg Potassium Chloride 20 meq PO QDAY #30 tab 07/22/14 10/31/17 10/30/17 Rx 20 meq Simvastatin 20 mg PO QDAY #30 tablet 07/22/14 10/31/17 10/30/17 Rx 20 mg Warfarin [Coumadin] 5 mg PO DAILY 10/31/17 10/31/17 10/30/17 History 5 mg amLODIPine 10 mg PO DAILY 10/31/17 10/31/17 10/30/17 History 10 mg HYDROcodone/APAP 5-325 [[place] 1 - 2 each PO Q6HR PRN #14 tablet 02/01/19 Unknown Rx 5-325 mg TAB] ED Physical Exam - General Limitations: No Limitations, Language Barrier General appearance: alert, in distress (moderate respiratory distress) - Head Head exam: Present: atraumatic, normocephalic, normal inspection - Eye Eye exam: Present: normal appearance - ENT ENT exam: Present: normal exam, normal orophraynx, mucous membranes moist - Neck Neck exam: Present: normal inspection, full ROM. Absent: tenderness, meningismus, lymphadenopathy, thyromegaly - Respiratory Respiratory exam: Present: respiratory distress, wheezes, rales, rhonchi, decreased breath sounds, prolonged expiratory. Absent: accessory muscle use - Cardiovascular Cardiovascular Exam: Present: irregular rhythm - GI/Abdominal GI/Abdominal exam: Present: soft, normal bowel sounds. Absent: distended, tenderness, guarding, rebound, rigid, organomegaly, mass, bruit, pulsatile mass, hernia - Extremities Exam Extremities exam: Present: normal inspection, full ROM, normal capillary refill, pedal edema. Absent: calf tenderness - Back Exam Back exam: Present: normal inspection, full ROM. Absent: CVA tenderness (R), CVA tenderness (L), muscle spasm, paraspinal tenderness, vertebral tenderness - Neurological Exam Neurological exam: Present: alert, oriented X3, CN II-XII intact, normal gait - Psychiatric Psychiatric exam: Present: normal mood - Skin Skin exam: Present: warm, intact, normal color ED Course Vital Signs 09/29/19 09/29/19 19:30 21:25 Temperature 98.5 F Pulse Rate 72 91 H Respiratory 20 22 Rate Blood Pressure 120/59 Blood Pressure 148/86 [Left] O2 Sat by Pulse 97 99 Oximetry ED Medical Decision Making - Lab Data Result diagrams: 09/29/19 19:53 09/29/19 19:53 - EKG Data -: EKG Interpreted by Ut EKG shows normal: sinus rhythm Rate: normal - EKG Data Interpretation: no acute changes - Radiology Data Radiology results: report reviewed - Medical Decision Making Patient is 74 years old female with history of COPD, congestive heart failure with ejection fraction of 30-40%. Patient presented to the ER complaining of sh ortness of breath for one week associated with cough, productive for greenish sputum. Patient stated that she was sent to the ER by Dr. Horton, mortgage processor for further evaluation. Patient stated that her symptoms has being going on for more than a week now. Patient denied any fever or chills. No chest pain. EKG showed no ST elevation or depression. Chest x-ray is unremarkable. Patient received albuterol, Atrovent, Solu-Medrol and Lasix. Labs reviewed and is unremarkable. I discussed the patient with Dr. Krupa Spencer, she agreed to admit the patient to medical service for further management. Critical Care Time: Yes Critical care time in (mins) excluding proc time.: 30 Critical care attestation.: If time is entered above; I have spent that time in minutes in the direct care of this critically ill patient, excluding procedure time. ED Disposition Clinical Impression: COPD exacerbation, Acute exacerbation of CHF (congestive heart failure) Disposition: OP ADMIT IP TO THIS HOSP Is pt being admited?: Yes Condition: Stable Instructions: Chronic Obstructive Pulmonary Disease (ED)
[2019-09-29] MEDS ORDERED: ALBUTEROL 2.5 MG/3 ML NEBU IH PRN (22:56)
[2019-09-29] MEDS ORDERED: ONDANSETRON 4 MG/2 ML INJ IV PRN (22:56)
--- NOTE | 2019-09-29 23:36 | History and Physical Report ---
<ABDOULAYE MATHEWS - Last Filed: 09/29/19 23:29> History of Present Illness Date of examination: 09/29/19 Date of admission: 09/29/2019 Chief complaint: Difficulty in breathing History of present illness: 74-year-old -[place] female who was a former smoker with history of COPD, hypertension, CVA, ID, CHF with EF 35-40%, A. fib anticoagulated on Eliquis, MICHAEL on CPAP who presents to [facility] ED with complaints of difficulty breathing, cough with occasional thick white sputum for one week. Pt' family is present at bedside and has assisted with providing history. Pt states that she was referred to the ED by her cardilogist Dr. Horton ( [facility]) after running out of her Lasix and complaining of shortness of breath and productive cough. Pt states that she missed approximately 3-4 days of her po Lasix d/t running out of med and the holiday. She attempted to obtain a refill but states that the office was closed for the holiday and she left a message on the medication refill line. Additionally she has been experiencing cough with occasional thick white sputum production for the past week. She endorses SOB at rest and increased dyspnea with activity. She denies fever, chills, or n/v. Past History Past Medical History: atrial fib (on Eliquis), COPD (Asthma), heart failure (EF 35-40% on Echo 08/15/2019), hypertension, hyperlipidemia, stroke, other (MICHAEL n octurnal use of CPAP) Past Surgical History: Other (back surgery, Pacemaker, BANDAR with Cardioversion 08/15/2019) Social history: lives with family Family history: no significant family history Medications and Allergies Allergies Allergy/AdvReac Type Severity Reaction Status Date / Time azilsartan AdvReac Unknown Verified 10/31/17 09:09 Home Medications Medication Instructions Recorded Confirmed Last Taken Type Aspirin [Aspirin BABY CHEW TAB] 81 mg PO DAILY #100 tab.chew 07/01/13 09/30/19 09/29/19 09:00 Rx ALBUTEROL Inhaler (OR & NICU) 2 puff IH QID PRN #1 inha 07/22/14 09/30/19 10/30/17 Rx [ProAir HFA Inhaler] 2 Potassium Chloride 20 meq PO QDAY #30 tab 0909/30/19 10/30/17 Rx 20 meq Simvastatin 20 mg PO QDAY #30 tablet 07/22/14 09/30/19 10/30/17 Rx 20 mg amLODIPine 10 mg PO DAILY 10/31/17 09/29/19 10/30/17 History 10 mg Apixaban [Eliquis] 5 mg PO BID 09/29/19 09/30/19 Unknown History Irbesartan 150 mg PO DAILY 09/29/19 09/30/19 Unknown History Magnesium 250 mg PO DAILY 09/29/19 09/30/19 Unknown History Citalopram Hydrobromide [celeXA] 20 mg PO DAILY 09/30/19 09/30/19 Unknown H istory Furosemide [Lasix TAB] 20 mg PO QDAY 09/30/19 09/30/19 Unknown History Metoprolol [Lopressor TAB] 50 mg PO Q24HR 09/30/19 09/30/19 Unknown History Active Meds: Active Medications Acetaminophen (Tylenol) 650 mg PO Q4H PRN PRN Reason: Pain MILD(1-3)/Fever >100.5/[place] Albuterol (Proventil) 2.5 mg IH Q3HRT PRN PRN Reason: Shortness Of Breath Albuterol/Ipratropium (Duoneb *Not For Prn Use*) 1 ampul IH Q6HRT [facility] Amlodipine Besylate (Amlodipine) 10 mg PO DAILY [facility] Apixaban (Eliquis) 5 mg PO Q12HR [facility]; Protocol Aspirin (Baby Aspirin) 81 mg PO DAILY [facility] Budesonide (Pulmicort) 0.5 mg IH Q12HRT [facility] Docusate Sodium (Colace) 100 mg PO BID [facility] Furosemide (Lasix) 40 mg IV 0600,1800 [facility] Methylprednisolone Sodium Succinate (Solu-Medrol) 60 mg IV Q8HR [facility] Ondansetron HCl (Zofran) 4 mg IV Q8H PRN PRN Reason: Nausea And Vomiting Potassium Chloride (K-Dur) 10 meq PO QDAY [facility] Sodium Chloride (Sodium Chloride Flush Syringe 10 Ml) 10 ml IV BID [facility] Sodium Chloride (Sodium Chloride Flush Syringe 10 Ml) 10 ml IV PRN PRN PRN Reason: LINE FLUSH Review of Systems All systems: negative Cardiovascular: edema, shortness of breath, dyspnea on exertion, leg edema Respiratory: cough with sputum (white thin/thick sputum), shortness of breath, dyspnea on exertion, sleep apnea Exam - Physical Exam Narrative exam: General appearance: Present: No acute distress, alert and orientedx3, well- developed, well-nourished, older adult female - EENT Eyes: Present: PERRL, EOM intact ENT: hearing intact, missing teeth - Neck Neck: Present: supple, normal ROM - Respiratory Respiratory effort: Non-labored Respiratory: bilateral: Diminished - Cardiovascular Heart rate:71 (bpm) Rhythm:SR Heart Sounds: Present: S1, S2. - Extremities Extremities: no ischemia, pulses intact, 2+ bilateral lower extremity pitting edema - Peripheral Assessment Peripheral Pulses: within normal limits - Abdominal General gastrointestinal: soft, non-tender, normal bowel sounds, - Integumentary Integumentary: Present: warm, dry - Musculoskeletal Musculoskeletal: able to move all extremities -Neurological Neurological: CN II-XII grossly intact - Psychiatric Psychiatric: cooperative - Constitutional Vitals: Temp Pulse Resp BP Pulse Ox 98.5 F 91 H 22 148/86 99 09/29/19 19:30 09/29/19 21:25 09/29/19 21:25 09/29/19 21:25 09/29/19 21:25 Results - Labs CBC & Chem 7: 09/29/19 19:53 09/29/19 19:53 Labs: Laboratory Last Values WBC 7.2 K/mm3 (4.5-11.0) 09/29/19 19:53 RBC 3.78 M/mm3 (3.65-5.03) 09/29/19 19:53 Hgb 12.3 gm/dl (10.1-14.3) 09/29/19 19:53 Hct 36.9 % (30.3-42.9) 09/29/19 19:53 MCV 98 fl (79-97) H 09/29/19 19:53 MCH 33 pg (28-32) H 09/29/19 19:53 MCHC 33 % (30-34) 09/29/19 19:53 RDW 15.6 % (13.2-15.2) H 09/29/19 19:53 Plt Count 196 K/mm3 (140-440) 09/29/19 19:53 Lymph % (Auto) 22.5 % (13.4-35.0) 09/29/19 19:53 Grady % (Auto) 7.1 % (0.0-7.3) 09/29/19 19:53 Eos % (Auto) 3.3 % (0.0-4.3) 09/29/19 19:53 Baso % (Auto) 0.8 % (0.0-1.8) 09/29/19 19:53 Lymph # 1.6 K/mm3 (1.2-5.4) 09/29/19 19:53 Grady # 0.5 K/mm3 (0.0-0.8) 09/29/19 19:53 Eos # 0.2 K/mm3 (0.0-0.4) 09/29/19 19:53 Baso # 0.1 K/mm3 (0.0-0.1) 09/29/19 19:53 Seg Neutrophils % 66.3 % (40.0-70.0) 09/29/19 19:53 Seg Neutrophils # 4.8 K/mm3 (1.8-7.7) 09/29/19 19:53 PT 16.4 Sec. (12.2-14.9) H 09/29/19 19:53 INR 1.34 (0.87-1.13) H 09/29/19 19:53 APTT 33.4 Sec. (24.2-36.6) 09/29/19 19:53 Sodium 136 mmol/L (137-145) L 09/29/19 19:53 Potassium 4.7 mmol/L (3.6-5.0) 09/29/19 19:53 Chloride 106.0 mmol/L (98-107) 09/29/19 19:53 Carbon Dioxide 22 mmol/L (22-30) 09/29/19 19:53 Anion Gap 13 mmol/L 09/29/19 19:53 BUN 9 mg/dL (7-17) 09/29/19 19:53 Creatinine 0.8 mg/dL (0.7-1.2) 09/29/19 19:53 Estimated GFR > 60 ml/min 09/29/19 19:53 BUN/Creatinine Ratio 11 % 09/29/19 19:53 Glucose 89 mg/dL (65-100) 12/02/19 19:53 Calcium 9.1 mg/dL (8.4-10.2) 09/29/19 19:53 Total Bilirubin 0.60 mg/dL (0.1-1.2) 09/29/19 19:53 AST 17 units/L (5-40) 09/29/19 19:53 ALT 16 units/L (7-56) 09/29/19 19:53 Alkaline Phosphatase 105 units/L (35-129) 09/29/19 19:53 Troponin T < 0.010 ng/mL (0.00-0.029) 09/29/19 19:53 NT-Pro-B Natriuret Pep 1386 pg/mL (0-900) H 09/29/19 19:53 Total Protein 7.3 g/dL (6.3-8.2) 09/29/19 19:53 Albumin 3.7 g/dL (3.9-5) L 09/29/19 19:53 Albumin/Globulin Ratio 1.0 % 09/29/19 19:53 - Imaging and Cardiology Imaging and Cardiology: CXR: FINDINGS: SUPPORT DEVICES: Left subclavian pacemaker leads HEART / MEDIASTINUM: Moderate cardiomegaly LUNGS / PLEURA: No significant pulmonary or pleural abnormality. No pneumothorax. ADDITIONAL FINDINGS: No significant additional findings. IMPRESSION: 1. Cardiomegaly without CHF Assessment and Plan Assessment and plan: 74-year-old -[place] female who was a former smoker with history of COPD, hypertension, CVA, ID, CHF with EF 35-40%, A. fib anticoagulated on Eliquis, MICHAEL on CPAP who presents to [facility] ED with complaints of difficulty breathing, cough with occasional thick white sputum for one week. Acute exacerbation CHF -Ejection fraction 35-40% seen on BANDAR done 08/15/19 -BNP elevated at 1386 -CXR shows cardiomegaly -Patient has 2+ bilateral lower extremity pitting edema -Start IV Lasix twice a day -Continue HF meds -Follows [facility] as outpatient -Cardiology consulted Acute exacerbation COPD -Increased shortness of breath -Scheduled to DuoNebs and Pulmicort, albuterol when necessary -IV systemic steroids -Start Mucinex HTN -Monitor BP -Resume home antihypertensive meds Hx MICHAEL -Continue nocturnal use of CPAP Hx of Paroxysmal A.Fib -S/P BANDAR with cardioversion on 08/15/19 -on Eliquis -ICD in situ DVT PPX -On Eliquis and ASA Advance Directives: No VTE prophylaxis?: Chemical Plan of care discussed with patient/family: Yes <MONTY MENARD - Last Filed: 09/30/19 01:09> History of Present Illness Date of admission: 09/29/19 22:56 Medications and Allergies Active Meds: Active Medications Acetaminophen (Tylenol) 650 mg PO Q4H PRN PRN Reason: Pain MILD(1-3)/Fever >100.5/[place] Albuterol (Proventil) 2.5 mg IH Q3HRT PRN PRN Reason: Shortness Of Breath Albuterol/Ipratropium (Duoneb *Not For Prn Use*) 1 ampul IH Q6HRT [facility] Amlodipine Besylate (Amlodipine) 10 mg PO DAILY [facility] Apixaban (Eliquis) 5 mg PO Q12HR [facility]; Protocol Aspirin (Baby Aspirin) 81 mg PO DAILY [facility] Budesonide (Pulmicort) 0.5 mg IH Q12HRT [facility] Docusate Sodium (Colace) 100 mg PO BID [facility] Furosemide (Lasix) 40 mg IV 0600,1800 [facility] Guaifenesin (Mucinex Er) 600 mg PO BID [facility] Methylprednisolone Sodium Succinate (Solu-Medrol) 60 mg IV Q8HR [facility] Ondansetron HCl (Zofran) 4 mg IV Q8H PRN PRN Reason: Nausea And Vomiting Potassium Chloride (K-Dur) 10 meq PO QDAY [facility] Sodium Chloride (Sodium Chloride Flush Syringe 10 Ml) 10 ml IV BID [facility] Sodium Chloride (Sodium Chloride Flush Syringe 10 Ml) 10 ml IV PRN PRN PRN Reason: LINE FLUSH Exam - Constitutional Vitals: Temp Pulse Resp BP Pulse Ox 98.1 F 97 H 16 133/77 95 09/30/19 00:48 09/30/19 00:48 09/30/19 00:48 09/30/19 00:48 09/30/19 00:48 Results - Labs CBC & Chem 7: 09/29/19 19:53 09/29/19 19:53 Labs: Laboratory Last Values WBC 7.2 K/mm3 (4.5-11.0) 09/29/19 19:53 RBC 3.78 M/mm3 (3.65-5.03) 09/29/19 19:53 Hgb 12.3 gm/dl (10.1-14.3) 09/29/19 19:53 Hct 36.9 % (30.3-42.9) 09/29/19 19:53 MCV 98 fl (79-97) H 09/29/19 19:53 MCH 33 pg (28-32) H 09/29/19 19:53 MCHC 33 % (30-34) 09/29/19 19:53 RDW 15.6 % (13.2-15.2) H 09/29/19 19:53 Plt Count 196 K/mm3 (140-440) 09/29/19 19:53 Lymph % (Auto) 22.5 % (13.4-35.0) 09/29/19 19:53 Grady % (Auto) 7.1 % (0.0-7.3) 09/29/19 19:53 Eos % (Auto) 3.3 % (0.0-4.3) 09/29/19 19:53 Baso % (Auto) 0.8 % (0.0-1.8) 09/29/19 19:53 Lymph # 1.6 K/mm3 (1.2-5.4) 09/29/19 19:53 Grady # 0.5 K/mm3 (0.0-0.8) 09/29/19 19:53 Eos # 0.2 K/mm3 (0.0-0.4) 09/29/19 19:53 Baso # 0.1 K/mm3 (0.0-0.1) 09/29/19 19:53 Seg Neutrophils % 66.3 % (40.0-70.0) 09/29/19 19:53 Seg Neutrophils # 4.8 K/mm3 (1.8-7.7) 09/29/19 19:53 PT 16.4 Sec. (12.2-14.9) H 09/29/19 19:53 INR 1.34 (0.87-1.13) H 09/29/19 19:53 APTT 33.4 Sec. (24.2-36.6) 09/29/19 19:53 Sodium 136 mmol/L (137-145) L 09/29/19 19:53 Potassium 4.7 mmol/L (3.6-5.0) 09/29/19 19:53 Chloride 106.0 mmol/L (98-107) 09/29/19 19:53 Carbon Dioxide 22 mmol/L (22-30) 09/29/19 19:53 Anion Gap 13 mmol/L 09/29/19 19:53 BUN 9 mg/dL (7-17) 09/29/19 19:53 Creatinine 0.8 mg/dL (0.7-1.2) 09/29/19 19:53 Estimated GFR > 60 ml/min 09/29/19 19:53 BUN/Creatinine Ratio 11 % 09/29/19 19:53 Glucose 89 mg/dL (65-100) 09/29/19 19:53 Calcium 9.1 mg/dL (8.4-10.2) 09/29/19 19:53 Total Bilirubin 0.60 mg/dL (0.1-1.2) 09/29/19 19:53 AST 17 units/L (5-40) 09/29/19 19:53 ALT 16 units/L (7-56) 09/29/19 19:53 Alkaline Phosphatase 105 units/L (35-129) 09/29/19 19:53 Troponin T < 0.010 ng/mL (0.00-0.029) 09/29/19 22:46 NT-Pro-B Natriuret Pep 1386 pg/mL (0-900) H 09/29/19 19:53 Total Protein 7.3 g/dL (6.3-8.2) 09/29/19 19:53 Albumin 3.7 g/dL (3.9-5) L 09/29/19 19:53 Albumin/Globulin Ratio 1.0 % 09/29/19 19:53 Assessment and Plan Assessment and plan: 74-year-old woman with a history of hypertension, diabetes, hyperlipidemia, CVA, A. fib, CHF comes emergency room with complaints of shortness of breath, w heezing, cough productive of white phlegm and palpitations. She stated that her symptoms started 1 week ago after the initiation of Cordarone. She spoke with her warehouse receiver today who told her to stop taking the medication. She ran out of her lasix 3 days ago, also complain of PND and orthropnea. Agree with plan as stated above. Add BB and ARB
[2019-09-30] MEDS: IPRATROPIUM/ALBUTEROL SULFATE 3 ML AMPUL.NEB IH SCH ×4 (02:28→21:45)
[2019-09-30] MEDS: FUROSEMIDE 40 MG/4 ML INJ IV SCH ×2 (06:20→17:48)
[2019-09-30] MEDS: methylPREDNISolone Sod Succinate 40 MG/1 ML INJ IV SCH ×3 (06:20→22:21)
[2019-09-30 06:30] LABS: Hematocrit 37.1 % (30.3-42.9); Hemoglobin 12.5 gm/dl (10.1-14.3); Mean Corpuscular HGB Conc 34 % (30-34); Mean Corpuscular Volume 97 fl (79-97); Platelet Count 197 K/mm3 (140-440); Red Blood Count 3.83 M/mm3 (3.65-5.03); Red Cell Distribution Width 15.5 % (13.2-15.2)
[2019-09-30 06:42] LABS: BUN/Creatinine Ratio 13; Blood Urea Nitrogen 10 mg/dL (7-17); Calcium 9.3 mg/dL (8.4-10.2)
[2019-09-30 06:43] LABS: Hemolysis Index 28
[2019-09-30 06:44] LABS: Creatine Kinase MB 2.2 ng/mL (0.0-4.0)
[2019-09-30 08:56] LABS: Creatine Kinase MB 2.3 ng/mL (0.0-4.0)
[2019-09-30] MEDS: METOPROLOL TARTRATE 50 MG TAB PO SCH (08:56)
[2019-09-30] MEDS: CITALOPRAM 20 MG TAB PO SCH (09:00)
[2019-09-30] MEDS: amLODIPine 10 MG TAB PO SCH (09:00)
[2019-09-30] MEDS: DOCUSATE SODIUM 100 MG CAP PO SCH ×2 (09:00→22:21)
[2019-09-30] MEDS: ASPIRIN 81 MG TAB CHEW PO SCH (09:00)
[2019-09-30] MEDS: guaiFENesin ER 600 MG TAB PO SCH ×2 (09:00→22:21)
[2019-09-30] MEDS: POTASSIUM CHLORIDE ER 10 MEQ TAB PO SCH (09:00)
[2019-09-30 09:28] LABS: Basophils % (Manual) 0 % (0.0-1.8); Total Cells Counted 100
[2019-09-30 09:29] LABS: Anisocytosis Few; Eosinophils % (Manual) 0 % (0.0-4.3); Ovalocytes Rare; Platelet Estimate Consistent w Auto
[2019-09-30] MEDS ORDERED: APIXABAN 5 MG TAB PO SCH (10:00)
[2019-09-30] MEDS ORDERED: IRBESARTAN 150 MG PO SCH (10:00)
[2019-09-30] MEDS: BUDESONIDE 0.5 MG/2 ML NEBU IH SCH ×2 (11:07→21:45)
--- NOTE | 2019-09-30 14:01 | Consultation ---
History of Present Illness Consult date: 09/30/19 Consult reason: congestive heart failure History of present illness: This is a 74-year old woman whom recently underwent a BANDAR/cardioversion from atrial fibrillation to sinus rhythm. However, her left ventricular function was noted decreased at 35-45% from a normal left ventricular function in October. On a follow up visit, patient was noted to be back in atrial fibrillation/flutter and was placed on amiodarone 200mg twice daily for suppression. She takes Eliquis for oral anticoagulation therapy. Patient presents to this hospital with shortness of breath, palpitations and lower extremity edema. She admits to running out of medications including her lasix. A chest x-ray shows cardiomegaly but no evidence of interstitial edema. Her presenting ECG is sinus rhythm. Review of telemetry strips shows multi-focal atrial tachycardia. Past History Past Medical History: atrial fib (on Eliquis), COPD (Asthma), heart failure (EF 35-40% on Echo 08/15/2019), hypertension, hyperlipidemia, stroke, other (MICHAEL nocturnal use of CPAP) Past Surgical History: Other (back surgery, Pacemaker, BANDAR with Cardioversion 08/15/2019) Social history: lives with family Family history: no significant family history Medications and Allergies Allergies Allergy/AdvReac Type Severity Reaction Status Date / Time azilsartan AdvReac Unknown Verified 10/31/17 09:09 Home Medications Medication Instructions Recorded Confirmed Last Taken Type Aspirin [Aspirin BABY CHEW TAB] 81 mg PO DAILY #100 tab.chew 07/01/13 09/30/19 09/29/19 09:00 Rx ALBUTEROL Inhaler (OR & NICU) 2 puff IH QID PRN #1 inha 07/22/14 09/30/19 10/30/17 Rx [ProAir HFA Inhaler] 2 Potassium Chloride 20 meq PO QDAY #30 tab 07/22/14 09/30/19 10/30/17 Rx 20 meq Simvastatin 20 mg PO QDAY #30 tablet 07/22/14 09/30/19 10/30/17 Rx 20 mg amLODIPine 10 mg PO DAILY 10/31/17 09/29/19 10/30/17 History 10 mg Apixaban [Eliquis] 5 mg PO BID 09/29/19 09/30/19 Unknown History Irbesartan 150 mg PO DAILY 09/29/19 09/30/19 Unknown History Magnesium 250 mg PO DAILY 09/29/19 09/30/19 Unknown History Citalopram Hydrobromide [celeXA] 20 mg PO DAILY 09/30/19 09/30/19 Unknown History Furosemide [Lasix TAB] 20 mg PO QDAY 09/30/19 09/30/19 Unknown History Metoprolol [Lopressor TAB] 50 mg PO Q24HR 09/30/19 09/30/19 Unknown History Active Meds: Active Medications Acetaminophen (Tylenol) 650 mg PO Q4H PRN PRN Reason: Pain MILD(1-3)/Fever >100.5/[place]AMPAGNE Albuterol (Proventil) 2.5 mg IH Q3HRT PRN PRN Reason: Shortness Of Breath Albuterol/Ipratropium (Duoneb *Not For Prn Use*) 1 ampul IH Q6HRT [facility] Last Admin: 09/30/19 11:07 Dose: 1 ampul Documented by: Amlodipine Besylate (Amlodipine) 10 mg PO DAILY [facility] Last Admin: 09/30/19 09:00 Dose: 10 mg Documented by: Apixaban (Eliquis) 5 mg PO Q12HR [facility]; Protocol Last Admin: 09/30/19 09:00 Dose: 5 mg Documented by: Aspirin (Baby Aspirin) 81 mg PO DAILY [facility] Last Admin: 09/30/19 09:00 Dose: 81 mg Documented by: Budesonide (Pulmicort) 0.5 mg IH Q12HRT [facility] Last Admin: 09/30/19 11:07 Dose: 0.5 mg Documented by: Citalopram Hydrobromide (Celexa) 20 mg PO DAILY [facility] Last Admin: 09/30/19 09:00 Dose: 20 mg Documented by: Docusate Sodium (Colace) 100 mg PO BID [facility] Last Admin: 09/30/19 09:00 Dose: 100 mg Documented by: Furosemide (Lasix) 40 mg IV 0600,1800 [facility] Last Admin: 09/30/19 06:20 Dose: 40 mg Documented by: Guaifenesin (Mucinex Er) 600 mg PO BID [facility] Last Admin: 09/30/19 09:00 Dose: 600 mg Documented by: Methylprednisolone Sodium Succinate (Solu-Medrol) 60 mg IV Q8HR [facility] Last Admin: 09/30/19 13:05 Dose: 60 mg Documented by: Metoprolol Tartrate (Metoprolol) 50 mg PO Q24H [facility] Last Admin: 09/30/19 08:56 Dose: 50 mg Documented by: Miscellaneous Medication (Irbesartan [Irbesartan]) 150 mg PO DAILY [facility] Ondansetron HCl (Zofran) 4 mg IV Q8H PRN PRN Reason: Nausea And Vomiting Potassium Chloride (K-Dur) 10 meq PO QDAY [facility] Last Admin: 09/30/19 09:00 Dose: 10 meq Documented by: Pravastatin Sodium (Pravachol) 40 mg PO QHS [facility] Sodium Chloride (Sodium Chloride Flush Syringe 10 Ml) 10 ml IV BID [facility] Last Admin: 09/30/19 09:01 Dose: 10 ml Documented by: Sodium Chloride (Sodium Chloride Flush Syringe 10 Ml) 10 ml IV PRN PRN PRN Reason: LINE FLUSH Last Admin: 09/30/19 06:20 Dose: 10 ml Documented by: Physical Examination Vital Signs Temp Pulse Resp BP Pulse Ox 98.5 F 72 20 120/59 97 09/29/19 19:30 09/29/19 19:30 09/29/19 19:30 09/29/19 19:30 09/29/19 19:30 General appearance: no acute distress HEENT: Positive: PERRL Neck: Positive: trachea midline Cardiac: Positive: Irregularly Regular Lungs: Positive: Decreased Breath Sounds Neuro: Positive: Grossly Intact Extremities: Present: +1 Edema Results 09/30/19 05:39 09/30/19 05:39 Cardiac Enzymes 09/29/19 09/30/19 09/30/19 Range/Units 19:53 05:39 08:09 AST 17 (5-40) units/L CK-MB (CK-2) 2.2 2.3 (0.0-4.0) ng/mL Coagulation 09/29/19 Range/Units 19:53 PT 16.4 H (12.2-14.9) Sec. INR 1.34 H (0.87-1.13) APTT 33.4 (24.2-36.6) Sec. CBC 09/29/19 09/30/19 Range/Units 19:53 05:39 WBC 7.2 6.1 (4.5-11.0) K/mm3 RBC 3.78 3.83 (3.65-5.03) M/mm3 Hgb 12.3 12.5 (10.1-14.3) gm/dl Hct 36.9 37.1 (30.3-42.9) % Plt Count 196 197 (140-440) K/mm3 Lymph # 1.6 (1.2-5.4) K/mm3 Hyde # 0.5 (0.0-0.8) K/mm3 Eos # 0.2 (0.0-0.4) K/mm3 Baso # 0.1 (0.0-0.1) K/mm3 Comprehensive Metabolic Panel 09/29/19 09/30/19 Range/Units 19:53 05:39 Sodium 136 L 135 L (137-145) mmol/L Potassium 4.7 4.0 (3.6-5.0) mmol/L Chloride 106.0 99.4 (98-107) mmol/L Carbon Dioxide 22 18 L (22-30) mmol/L BUN 9 10 (7-17) mg/dL Creatinine 0.8 0.8 (0.7-1.2) mg/dL Glucose 89 224 H (65-100) mg/dL Calcium 9.1 9.3 (8.4-10.2) mg/dL AST 17 (5-40) units/L ALT 16 (7-56) units/L Alkaline Phosphatase 105 (35-129) units/L Total Protein 7.3 (6.3-8.2) g/dL Albumin 3.7 L (3.9-5) g/dL Assessment and Plan Shortness of breath MICHAEL uses CPAP as an outpatient Paroxysmal Afib/flutter MAT on telemetry strips on eliquis for oral anticoagulation Hx of tachy-kashif syndrome pacemaker present Hypertension Prior CVA Dilated Cardiomyopathy, EF 35-40% by BANDAR 07/2019
--- NOTE | 2019-09-30 15:52 | Progress Note ---
Assessment and Plan Assessment and plan: Paroxysmal Afib/flutter--prob MAT. Cont. on eliquis for oral anticoagulation cardiology to perform ?cardioversion Hx of tachy-kashif syndrome pacemaker present MICHAEL. Cont. CPAP. Pt uses as an outpatient Hypertension. Cont home antihypertensives Prior CVA Dilated Cardiomyopathy. Echo revealed EF 35-40% by BANDAR 07/2019 History Interval history: No new issues Hospitalist Physical - Constitutional Vitals: Temp Pulse Resp BP Pulse Ox 97.6 F 80 20 138/79 95 09/30/19 03:45 09/30/19 11:07 09/30/19 11:07 09/30/19 09:00 09/30/19 03:45 General appearance: Present: no acute distress - EENT Eyes: Present: PERRL, EOM intact ENT: hearing intact, clear oral mucosa, dentition normal - Neck Neck: Present: supple, normal ROM - Respiratory Respiratory effort: normal Respiratory: bilateral: CTA - Cardiovascular Rhythm: regular Heart Sounds: Present: S1 & S2. Absent: gallop, rub - Extremities Extremities: no ischemia, No edema, Full ROM - Abdominal General gastrointestinal: soft, non-tender, non-distended, normal bowel sounds - Integumentary Integumentary: Present: clear, warm, dry - Neurologic Neurologic: CNII-XII intact, moves all extremities Results - Labs CBC & Chem 7: 09/30/19 05:39 09/30/19 05:39 Labs: Laboratory Last Values WBC 6.1 K/mm3 (4.5-11.0) 09/30/19 05:39 RBC 3.83 M/mm3 (3.65-5.03) 09/30/19 05:39 Hgb 12.5 gm/dl (10.1-14.3) 09/30/19 05:39 Hct 37.1 % (30.3-42.9) 09/30/19 05:39 MCV 97 fl (79-97) 09/30/19 05:39 MCH 33 pg (28-32) H 09/30/19 05:39 MCHC 34 % (30-34) 09/30/19 05:39 RDW 15.5 % (13.2-15.2) H 09/30/19 05:39 Plt Count 197 K/mm3 (140-440) 09/30/19 05:39 Lymph % (Auto) 22.5 % (13.4-35.0) 09/29/19 19:53 Caswell % (Auto) 7.1 % (0.0-7.3) 09/29/19 19:53 Eos % (Auto) 3.3 % (0.0-4.3) 09/29/19 19:53 Baso % (Auto) 0.8 % (0.0-1.8) 09/29/19 19:53 Lymph # 1.6 K/mm3 (1.2-5.4) 09/29/19 19:53 Caswell # 0.5 K/mm3 (0.0-0.8) 09/29/19 19:53 Eos # 0.2 K/mm3 (0.0-0.4) 09/29/19 19:53 Baso # 0.1 K/mm3 (0.0-0.1) 09/29/19 19:53 Add Manual Diff Complete 09/30/19 05:39 Total Counted 100 09/30/19 05:39 Seg Neutrophils % Washing Tub Operator 09/30/19 05:39 Seg Neuts % (Manual) 95.0 % (40.0-70.0) H 09/30/19 05:39 Band Neutrophils % 0 % 09/30/19 05:39 Lymphocytes % (Manual) 4.0 % (13.4-35.0) L 09/30/19 05:39 Reactive Lymphs % (Man) 0 % 09/30/19 05:39 Monocytes % (Manual) 1.0 % (0.0-7.3) 09/30/19 05:39 Eosinophils % (Manual) 0 % (0.0-4.3) 09/30/19 05:39 Basophils % (Manual) 0 % (0.0-1.8) 09/30/19 05:39 Metamyelocytes % 0 % 09/30/19 05:39 Myelocytes % 0 % 09/30/19 05:39 Promyelocytes % 0 % 09/30/19 05:39 Blast Cells % 0 % 09/30/19 05:39 Nucleated RBC % Not Reportable 09/30/19 05:39 Seg Neutrophils # 4.8 K/mm3 (1.8-7.7) 09/29/19 19:53 Seg Neutrophils # Man 5.8 K/mm3 (1.8-7.7) 09/30/19 05:39 Band Neutrophils # 0.0 K/mm3 09/30/19 05:39 Lymphocytes # (Manual) 0.2 K/mm3 (1.2-5.4) L 09/30/19 05:39 Abs React Lymphs (Man) 0.0 K/mm3 09/30/19 05:39 Monocytes # (Manual) 0.1 K/mm3 (0.0-0.8) 09/30/19 05:39 Eosinophils # (Manual) 0.0 K/mm3 (0.0-0.4) 09/30/19 05:39 Basophils # (Manual) 0.0 K/mm3 (0.0-0.1) 09/30/19 05:39 Metamyelocytes # 0.0 K/mm3 09/30/19 05:39 Myelocytes # 0.0 K/mm3 09/30/19 05:39 Promyelocytes # 0.0 K/mm3 09/30/19 05:39 Blast Cells # 0.0 K/mm3 09/30/19 05:39 WBC Morphology Not Reportable 09/30/19 05:39 Hypersegmented Neuts Not Reportable 09/30/19 05:39 Hyposegmented Neuts Not Reportable 09/30/19 05:39 Hypogranular Neuts Not Reportable 09/30/19 05:39 Smudge Cells Not Reportable 09/30/19 05:39 Toxic Granulation Not Reportable 09/30/19 05:39 Toxic Vacuolation Not Reportable 09/30/19 05:39 Dohle Bodies Not Reportable 09/30/19 05:39 Pelger-Huet Anomaly Not Reportable 09/30/19 05:39 Lynsey Rods Not Reportable 09/30/19 05:39 Platelet Estimate Consistent w auto 09/30/19 05:39 Clumped Platelets Not Reportable 09/30/19 05:39 Plt Clumps, EDTA Not Reportable 09/30/19 05:39 Large Platelets Not Reportable 09/30/19 05:39 Giant Platelets Not Reportable 09/30/19 05:39 Platelet Satelliting Not Reportable 09/30/19 05:39 Plt Morphology Comment Not Reportable 09/30/19 05:39 RBC Morphology Not Reportable 09/30/19 05:39 Dimorphic RBCs Not Reportable 09/30/19 05:39 Polychromasia Not Reportable 09/30/19 05:39 Hypochromasia Not Reportable 09/30/19 05:39 Poikilocytosis Not Reportable 09/30/19 05:39 Anisocytosis Few 09/30/19 05:39 Microcytosis Not Reportable 09/30/19 05:39 Macrocytosis Not Reportable 09/30/19 05:39 Spherocytes Not Reportable 09/30/19 05:39 Pappenheimer Bodies Not Reportable 09/30/19 05:39 Sickle Cells Not Reportable 09/30/19 05:39 Target Cells Not Reportable 09/30/19 05:39 Tear Drop Cells Not Reportable 09/30/19 05:39 Ovalocytes Rare 09/30/19 05:39 Helmet Cells Not Reportable 09/30/19 05:39 Hedrick-Xenia Bodies Not Reportable 09/30/19 05:39 Mobile Rings Not Reportable 09/30/19 05:39 Charles Cells Not Reportable 09/30/19 05:39 Bite Cells Not Reportable 09/30/19 05:39 Crenated Cell Not Reportable 09/30/19 05:39 Elliptocytes Not Reportable 09/30/19 05:39 Acanthocytes (Spur) Not Reportable 09/30/19 05:39 Rouleaux Not Reportable 09/30/19 05:39 Hemoglobin C Crystals Not Reportable 09/30/19 05:39 Schistocytes Not Reportable 09/30/19 05:39 Malaria parasites Not Reportable 09/30/19 05:39 Merlin Bodies Not Reportable 09/30/19 05:39 Hem Pathologist Commnt No 09/30/19 05:39 PT 16.4 Sec. (12.2-14.9) H 09/29/19 19:53 INR 1.34 (0.87-1.13) H 09/29/19 19:53 APTT 33.4 Sec. (24.2-36.6) 09/29/19 19:53 Sodium 135 mmol/L (137-145) L 09/30/19 05:39 Potassium 4.0 mmol/L (3.6-5.0) 09/30/19 05:39 Chloride 99.4 mmol/L (98-107) 09/30/19 05:39 Carbon Dioxide 18 mmol/L (22-30) L 09/30/19 05:39 Anion Gap 22 mmol/L 09/30/19 05:39 BUN 10 mg/dL (7-17) 09/30/19 05:39 Creatinine 0.8 mg/dL (0.7-1.2) 09/30/19 05:39 Estimated GFR > 60 ml/min 09/30/19 05:39 BUN/Creatinine Ratio 13 % 09/30/19 05:39 Glucose 224 mg/dL (65-100) H 09/30/19 05:39 Calcium 9.3 mg/dL (8.4-10.2) 09/30/19 05:39 Total Bilirubin 0.60 mg/dL (0.1-1.2) 09/29/19 19:53 AST 17 units/L (5-40) 09/29/19 19:53 ALT 16 units/L (7-56) 09/29/19 19:53 Alkaline Phosphatase 105 units/L (35-129) 09/29/19 19:53 Total Creatine Kinase 101 units/L (30-135) 09/30/19 08:09 CK-MB (CK-2) 2.3 ng/mL (0.0-4.0) 09/30/19 08:09 CK-MB (CK-2) Rel Index 2.2 (0-4) 09/30/19 08:09 Troponin T < 0.010 ng/mL (0.00-0.029) 09/30/19 08:09 NT-Pro-B Natriuret Pep 1386 pg/mL (0-900) H 09/29/19 19:53 Total Protein 7.3 g/dL (6.3-8.2) 09/29/19 19:53 Albumin 3.7 g/dL (3.9-5) L 09/29/19 19:53 Albumin/Globulin Ratio 1.0 % 09/29/19 19:53 Active Medications - Current Medications Current Medications: Generic Name Dose Route Start Last Admin Trade Name Freq PRN Reason Stop Dose Admin Acetaminophen 650 mg 09/29/19 22:56 Tylenol PO Q4H PRN Pain MILD(1-3)/Fever >100.5/[place] Albuterol 2.5 mg 12/02/19 22:56 Proventil IH Q3HRT PRN Shortness Of Breath Albuterol/Ipratropium 1 ampul 09/30/19 02:00 09/30/19 11:07 Duoneb *Not For Prn Use* IH 1 ampul Q6HRT [facility] Administration Amiodarone HCl 200 mg 09/30/19 22:00 Cordarone PO BID [facility] Amlodipine Besylate 10 mg 09/30/19 10:00 09/30/19 09:00 Amlodipine PO 10 mg DAILY [facility] Administration Aspirin 81 mg 09/30/19 10:00 09/30/19 09:00 Baby Aspirin PO 81 mg DAILY [facility] Administration Budesonide 0.5 mg 09/30/19 08:00 09/30/19 11:07 Pulmicort IH 0.5 mg Q12HRT [facility] Administration Citalopram Hydrobromide 20 mg 09/30/19 10:00 09/30/19 09:00 Celexa PO 20 mg DAILY [facility] Administration Docusate Sodium 100 mg 09/30/19 10:00 09/30/19 09:00 Colace PO 100 mg BID [facility] Administration Enoxaparin Sodium 30 mg 10/01/19 10:00 Enoxaparin SUB-Q QDAY [facility] Furosemide 40 mg 09/30/19 06:00 09/30/19 06:20 Lasix IV 40 mg 0600,1800 [facility] Administration Guaifenesin 600 mg 09/30/19 10:00 09/30/19 09:00 Mucinex Er PO 600 mg BID [facility] Administration Methylprednisolone Sodium Succinate 60 mg 09/30/19 06:00 09/30/19 13:05 Solu-Medrol IV 60 mg Q8HR [facility] Administration Metoprolol Tartrate 50 mg 09/30/19 08:00 09/30/19 08:56 Metoprolol PO 50 mg Q24H [facility] Administration Miscellaneous Medication 150 mg 09/30/19 10:00 Irbesartan [Irbesartan] PO DAILY [facility] Ondansetron HCl 4 mg 09/29/19 22:56 Zofran IV Q8H PRN Nausea And Vomiting Potassium Chloride 10 meq 09/30/19 10:00 09/30/19 09:00 K-Dur PO 10 meq QDAY [facility] Administration Pravastatin Sodium 40 mg 12/03/19 22:00 Pravachol PO QHS [facility] Sodium Chloride 10 ml 09/30/19 10:00 09/30/19 09:01 Sodium Chloride Flush Syringe 10 Ml IV 10 ml BID [facility] Administration Sodium Chloride 10 ml 09/29/19 22:56 09/30/19 06:20 Sodium Chloride Flush Syringe 10 Ml IV 10 ml PRN PRN Administration LINE FLUSH
[2019-09-30] MEDS: AMIODARONE 200 MG TAB PO SCH (22:21)
[2019-09-30] MEDS: PRAVASTATIN 40 MG TAB PO SCH (22:21)
[2019-10-01] MEDS: IPRATROPIUM/ALBUTEROL SULFATE 3 ML AMPUL.NEB IH SCH ×4 (02:34→19:54)
[2019-10-01] MEDS: methylPREDNISolone Sod Succinate 40 MG/1 ML INJ IV SCH ×3 (05:41→22:46)
[2019-10-01] MEDS: FUROSEMIDE 40 MG/4 ML INJ IV SCH ×2 (05:41→17:26)
[2019-10-01] MEDS: ACETAMINOPHEN 325 MG TAB PO PRN ×2 (05:48→13:19)
[2019-10-01] MEDS: BUDESONIDE 0.5 MG/2 ML NEBU IH SCH ×2 (08:36→19:54)
[2019-10-01] MEDS: METOPROLOL TARTRATE 50 MG TAB PO SCH (08:46)
[2019-10-01] MEDS: amLODIPine 10 MG TAB PO SCH (09:45)
[2019-10-01] MEDS: ASPIRIN 81 MG TAB CHEW PO SCH (09:45)
[2019-10-01] MEDS: AMIODARONE 200 MG TAB PO SCH ×2 (09:45→22:45)
[2019-10-01] MEDS: CITALOPRAM 20 MG TAB PO SCH (09:45)
[2019-10-01] MEDS: guaiFENesin ER 600 MG TAB PO SCH ×2 (09:45→22:45)
[2019-10-01] MEDS: DOCUSATE SODIUM 100 MG CAP PO SCH ×2 (09:45→22:46)
[2019-10-01] MEDS: POTASSIUM CHLORIDE ER 10 MEQ TAB PO SCH (09:47)
[2019-10-01] MEDS ORDERED: ENOXAPARIN 30 MG/0.3 ML INJ SUB-Q SCH (10:00)
--- NOTE | 2019-10-01 11:55 | Progress Note ---
<NICOLAHE - Last Filed: 10/01/19 11:58> Assessment and Plan Shortness of breath MICHAEL uses CPAP as an outpatient Paroxysmal Afib/flutter MAT seen on telemetry strips on eliquis for oral anticoagulation; currently on hold for cardiac cath Hx of tachy-kashif syndrome pacemaker present Hypertension Prior CVA Dilated Cardiomyopathy, EF 35-40% by BANDAR 07/2019 Recommendations: Oral anticoagulation is on hold in anticipation of diagnostic cardiac catheterization on . We will continue amiodarone therapy for suppression of paroxysmal Afib/flutter. Subjective Date of service: 10/01/19 Interval history: Patient reports her breathing is better. Objective Vital Signs Temp Pulse Pulse Pulse Resp Resp BP 10/01/19 09:45 72 133/60 10/01/19 08:46 72 133/60 10/01/19 08:17 18 10/01/19 08:06 97.6 F 74 22 133/60 10/01/19 03:57 98.2 F 73 20 139/68 10/01/19 02:34 74 16 09/30/19 23:17 97.4 F L 95 H 18 116/58 09/30/19 21:49 75 16 09/30/19 21:40 76 16 09/30/19 21:00 100 H 18 09/30/19 20:28 98.1 F 86 16 143/70 09/30/19 16:19 74 18 09/30/19 16:00 71 Pulse Ox 10/01/19 09:45 10/01/19 08:46 10/01/19 08:17 10/01/19 08:06 98 10/01/19 03:57 98 10/01/19 02:34 09/30/19 23:17 95 09/30/19 21:49 99 09/30/19 21:40 09/30/19 21:00 09/30/19 20:28 97 09/30/19 16:19 09/30/19 16:00 - Physical Examination General: No Apparent Distress HEENT: Positive: PERRL Neck: Positive: trachea midline Cardiac: Positive: Other (pacing) Neuro: Positive: Grossly Intact Extremities: Present: +1 Edema <RAVI BANDA - Last Filed: 10/01/19 15:22> Assessment and Plan I've seen and evaluated the patient and agree with the assessment and plan. Patient has a history of paroxysmal atrial fibrillation for which she is anticoagulated on Eliquis., Tachybradycardia syndrome status post pacemaker placement, and a history of dilated cardiomyopathy with ejection fraction 35- 40%. Patient is currently euvolemic. Recommend continue goal-directed medical therapy for treatment of dilated cardiomyopathy. Patient is scheduled for cardiac cath for ischemic evaluation of cardiomyopathy. Objective Vital Signs Temp Pulse Pulse Pulse Resp Resp BP 10/01/19 11:57 98.2 F 76 20 107/54 10/01/19 10:00 70 10/01/19 09:45 72 133/60 10/01/19 08:46 72 133/60 10/01/19 08:17 18 10/01/19 08:06 97.6 F 74 22 133/60 10/01/19 03:57 98.2 F 73 20 139/68 10/01/19 02:34 74 16 09/30/19 23:17 97.4 F L 95 H 18 116/58 09/30/19 21:49 75 16 09/30/19 21:40 76 16 09/30/19 21:00 100 H 18 09/30/19 20:28 98.1 F 86 16 143/70 09/30/19 16:19 74 18 09/30/19 16:00 71 Pulse Ox 10/01/19 11:57 95 10/01/19 10:00 10/01/19 09:45 10/01/19 08:46 10/01/19 08:17 10/01/19 08:06 98 10/01/19 03:57 98 10/01/19 02:34 09/30/19 23:17 95 09/30/19 21:49 99 09/30/19 21:40 09/30/19 21:00 09/30/19 20:28 97 09/30/19 16:19 09/30/19 16:00
--- NOTE | 2019-10-01 18:36 | Progress Note ---
Assessment and Plan Assessment and plan: Paroxysmal Afib/flutter--prob MAT. Cont. on eliquis for oral anticoagulation cardiology to perform ?cardioversion Hx of tachy-kashif syndrome pacemaker present MICHAEL. Cont. CPAP. Pt uses as an outpatient Hypertension. Cont home antihypertensives Prior CVA Dilated Cardiomyopathy. Echo revealed EF 35-40% by BANDAR 07/2019 History Interval history: No new issues Hospitalist Physical - Constitutional Vitals: Temp Pulse Resp BP Pulse Ox 97.0 F L 71 20 113/61 95 10/01/19 16:48 10/01/19 16:48 10/01/19 16:48 10/01/19 17:22 10/01/19 17:22 General appearance: Present: no acute distress - EENT Eyes: Present: PERRL, EOM intact ENT: hearing intact, clear oral mucosa, dentition normal - Neck Neck: Present: supple, normal ROM - Respiratory Respiratory effort: normal Respiratory: bilateral: CTA - Cardiovascular Rhythm: regular Heart Sounds: Present: S1 & S2. Absent: gallop, rub - Extremities Extremities: no ischemia, No edema, Full ROM - Abdominal General gastrointestinal: soft, non-tender, non-distended, normal bowel sounds - Integumentary Integumentary: Present: clear, warm, dry - Neurologic Neurologic: CNII-XII intact, moves all extremities Results - Labs CBC & Chem 7: 09/30/19 05:39 09/30/19 05:39 Labs: Laboratory Last Values WBC 6.1 K/mm3 (4.5-11.0) 09/30/19 05:39 RBC 3.83 M/mm3 (3.65-5.03) 09/30/19 05:39 Hgb 12.5 gm/dl (10.1-14.3) 09/30/19 05:39 Hct 37.1 % (30.3-42.9) 09/30/19 05:39 MCV 97 fl (79-97) 09/30/19 05:39 MCH 33 pg (28-32) H 09/30/19 05:39 MCHC 34 % (30-34) 09/30/19 05:39 RDW 15.5 % (13.2-15.2) H 09/30/19 05:39 Plt Count 197 K/mm3 (140-440) 09/30/19 05:39 Lymph % (Auto) 22.5 % (13.4-35.0) 09/29/19 19:53 Creek % (Auto) 7.1 % (0.0-7.3) 09/29/19 19:53 Eos % (Auto) 3.3 % (0.0-4.3) 09/29/19 19:53 Baso % (Auto) 0.8 % (0.0-1.8) 09/29/19 19:53 Lymph # 1.6 K/mm3 (1.2-5.4) 09/29/19 19:53 Creek # 0.5 K/mm3 (0.0-0.8) 09/29/19 19:53 Eos # 0.2 K/mm3 (0.0-0.4) 09/29/19 19:53 Baso # 0.1 K/mm3 (0.0-0.1) 09/29/19 19:53 Add Manual Diff Complete 09/30/19 05:39 Total Counted 100 09/30/19 05:39 Seg Neutrophils % Brake Assembler 09/30/19 05:39 Seg Neuts % (Manual) 95.0 % (40.0-70.0) H 09/30/19 05:39 Band Neutrophils % 0 % 09/30/19 05:39 Lymphocytes % (Manual) 4.0 % (13.4-35.0) L 09/30/19 05:39 Reactive Lymphs % (Man) 0 % 09/30/19 05:39 Monocytes % (Manual) 1.0 % (0.0-7.3) 09/30/19 05:39 Eosinophils % (Manual) 0 % (0.0-4.3) 09/30/19 05:39 Basophils % (Manual) 0 % (0.0-1.8) 09/30/19 05:39 Metamyelocytes % 0 % 09/30/19 05:39 Myelocytes % 0 % 09/30/19 05:39 Promyelocytes % 0 % 09/30/19 05:39 Blast Cells % 0 % 09/30/19 05:39 Nucleated RBC % Not Reportable 09/30/19 05:39 Seg Neutrophils # 4.8 K/mm3 (1.8-7.7) 09/29/19 19:53 Seg Neutrophils # Man 5.8 K/mm3 (1.8-7.7) 09/30/19 05:39 Band Neutrophils # 0.0 K/mm3 09/30/19 05:39 Lymphocytes # (Manual) 0.2 K/mm3 (1.2-5.4) L 09/30/19 05:39 Abs React Lymphs (Man) 0.0 K/mm3 09/30/19 05:39 Monocytes # (Manual) 0.1 K/mm3 (0.0-0.8) 09/30/19 05:39 Eosinophils # (Manual) 0.0 K/mm3 (0.0-0.4) 09/30/19 05:39 Basophils # (Manual) 0.0 K/mm3 (0.0-0.1) 09/30/19 05:39 Metamyelocytes # 0.0 K/mm3 09/30/19 05:39 Myelocytes # 0.0 K/mm3 09/30/19 05:39 Promyelocytes # 0.0 K/mm3 09/30/19 05:39 Blast Cells # 0.0 K/mm3 09/30/19 05:39 WBC Morphology Not Reportable 09/30/19 05:39 Hypersegmented Neuts Not Reportable 09/30/19 05:39 Hyposegmented Neuts Not Reportable 09/30/19 05:39 Hypogranular Neuts Not Reportable 09/30/19 05:39 Smudge Cells Not Reportable 09/30/19 05:39 Toxic Granulation Not Reportable 09/30/19 05:39 Toxic Vacuolation Not Reportable 09/30/19 05:39 Dohle Bodies Not Reportable 09/30/19 05:39 Pelger-Huet Anomaly Not Reportable 09/30/19 05:39 Lynsey Rods Not Reportable 09/30/19 05:39 Platelet Estimate Consistent w auto 09/30/19 05:39 Clumped Platelets Not Reportable 09/30/19 05:39 Plt Clumps, EDTA Not Reportable 09/30/19 05:39 Large Platelets Not Reportable 09/30/19 05:39 Giant Platelets Not Reportable 09/30/19 05:39 Platelet Satelliting Not Reportable 09/30/19 05:39 Plt Morphology Comment Not Reportable 09/30/19 05:39 RBC Morphology Not Reportable 09/30/19 05:39 Dimorphic RBCs Not Reportable 09/30/19 05:39 Polychromasia Not Reportable 09/30/19 05:39 Hypochromasia Not Reportable 09/30/19 05:39 Poikilocytosis Not Reportable 09/30/19 05:39 Anisocytosis Few 09/30/19 05:39 Microcytosis Not Reportable 09/30/19 05:39 Macrocytosis Not Reportable 09/30/19 05:39 Spherocytes Not Reportable 09/30/19 05:39 Pappenheimer Bodies Not Reportable 09/30/19 05:39 Sickle Cells Not Reportable 09/30/19 05:39 Target Cells Not Reportable 09/30/19 05:39 Tear Drop Cells Not Reportable 09/30/19 05:39 Ovalocytes Rare 09/30/19 05:39 Helmet Cells Not Reportable 09/30/19 05:39 [place] Bodies Not Reportable 09/30/19 05:39 [place] Rings Not Reportable 09/30/19 05:39 Chalmers Cells Not Reportable 09/30/19 05:39 Bite Cells Not Reportable 09/30/19 05:39 Crenated Cell Not Reportable 09/30/19 05:39 Elliptocytes Not Reportable 09/30/19 05:39 Acanthocytes (Spur) Not Reportable 09/30/19 05:39 Rouleaux Not Reportable 09/30/19 05:39 Hemoglobin C Crystals Not Reportable 09/30/19 05:39 Schistocytes Not Reportable 09/30/19 05:39 Malaria parasites Not Reportable 09/30/19 05:39 Merlin Bodies Not Reportable 09/30/19 05:39 Hem Pathologist Commnt No 09/30/19 05:39 PT 16.4 Sec. (12.2-14.9) H 09/29/19 19:53 INR 1.34 (0.87-1.13) H 09/29/19 19:53 APTT 33.4 Sec. (24.2-36.6) 09/29/19 19:53 Sodium 135 mmol/L (137-145) L 09/30/19 05:39 Potassium 4.0 mmol/L (3.6-5.0) 09/30/19 05:39 Chloride 99.4 mmol/L (98-107) 09/30/19 05:39 Carbon Dioxide 18 mmol/L (22-30) L 09/30/19 05:39 Anion Gap 22 mmol/L 09/30/19 05:39 BUN 10 mg/dL (7-17) 09/30/19 05:39 Creatinine 0.8 mg/dL (0.7-1.2) 09/30/19 05:39 Estimated GFR > 60 ml/min 09/30/19 05:39 BUN/Creatinine Ratio 13 % 09/30/19 05:39 Glucose 224 mg/dL (65-100) H 09/30/19 05:39 Calcium 9.3 mg/dL (8.4-10.2) 09/30/19 05:39 Total Bilirubin 0.60 mg/dL (0.1-1.2) 09/29/19 19:53 AST 17 units/L (5-40) 09/29/19 19:53 ALT 16 units/L (7-56) 09/29/19 19:53 Alkaline Phosphatase 105 units/L (35-129) 09/29/19 19:53 Total Creatine Kinase 101 units/L (30-135) 09/30/19 08:09 CK-MB (CK-2) 2.3 ng/mL (0.0-4.0) 09/30/19 08:09 CK-MB (CK-2) Rel Index 2.2 (0-4) 09/30/19 08:09 Troponin T < 0.010 ng/mL (0.00-0.029) 09/30/19 08:09 NT-Pro-B Natriuret Pep 1386 pg/mL (0-900) H 09/29/19 19:53 Total Protein 7.3 g/dL (6.3-8.2) 09/29/19 19:53 Albumin 3.7 g/dL (3.9-5) L 09/29/19 19:53 Albumin/Globulin Ratio 1.0 % 09/29/19 19:53 Active Medications - Current Medications Current Medications: Generic Name Dose Route Start Last Admin Trade Name Freq PRN Reason Stop Dose Admin Acetaminophen 650 mg 09/29/19 22:56 10/01/19 13:19 Tylenol PO 650 mg Q4H PRN Administration Pain MILD(1-3)/Fever >100.5/[place] Albuterol 2.5 mg 09/29/19 22:56 Proventil IH Q3HRT PRN Shortness Of Breath Albuterol/Ipratropium 1 ampul 09/30/19 02:00 10/01/19 14:44 Duoneb *Not For Prn Use* IH 1 ampul Q6HRT FATEMEH Administration Amiodarone HCl 200 mg 09/30/19 22:00 10/01/19 09:45 Cordarone PO 200 mg BID FATEMEH Administration Amlodipine Besylate 10 mg 09/30/19 10:00 10/01/19 09:45 Amlodipine PO 10 mg DAILY FATEMEH Administration Aspirin 81 mg 09/30/19 10:00 10/01/19 09:45 Baby Aspirin PO 81 mg DAILY [facility] Administration Budesonide 0.5 mg 09/30/19 08:00 10/01/19 08:36 Pulmicort IH 0.5 mg Q12HRT FATEMEH Administration Citalopram Hydrobromide 20 mg 09/30/19 10:00 10/01/19 09:45 Celexa PO 20 mg DAILY [facility] Administration Docusate Sodium 100 mg 09/30/19 10:00 10/01/19 09:45 Colace PO 100 mg BID [facility] Administration Enoxaparin Sodium 40 mg 10/02/19 10:00 Enoxaparin SUB-Q QDAY@1000 [facility] Furosemide 40 mg 09/30/19 06:00 10/01/19 17:26 Lasix IV 40 mg 0600,1800 [facility] Administration Guaifenesin 600 mg 09/30/19 10:00 10/01/19 09:45 Mucinex Er PO 600 mg BID [facility] Administration Methylprednisolone Sodium Succinate 60 mg 09/30/19 06:00 10/01/19 13:22 Solu-Medrol IV 60 mg Q8HR [facility] Administration Metoprolol Tartrate 50 mg 09/30/19 08:00 10/01/19 08:46 Metoprolol PO 50 mg Q24H [facility] Administration Miscellaneous Medication 150 mg 09/30/19 10:00 Irbesartan [Irbesartan] PO DAILY [facility] Ondansetron HCl 4 mg 09/29/19 22:56 Zofran IV Q8H PRN Nausea And Vomiting Potassium Chloride 10 meq 09/30/19 10:00 10/01/19 09:47 K-Dur PO 10 meq QDAY FATEMEH Administration Pravastatin Sodium 40 mg 09/30/19 22:00 09/30/19 22:21 Pravachol PO 40 mg QHS FATEMEH Administration Sodium Chloride 10 ml 09/30/19 10:00 10/01/19 09:47 Sodium Chloride Flush Syringe 10 Ml IV 10 ml BID FATEMEH Administration Sodium Chloride 10 ml 09/29/19 22:56 09/30/19 06:20 Sodium Chloride Flush Syringe 10 Ml IV 10 ml PRN PRN Administration LINE FLUSH
[2019-10-01] MEDS: PRAVASTATIN 40 MG TAB PO SCH (22:45)
[2019-10-02] MEDS: IPRATROPIUM/ALBUTEROL SULFATE 3 ML AMPUL.NEB IH SCH ×3 (02:55→14:10)
[2019-10-02 05:37] LABS: INR 1.28 (0.87-1.13)
[2019-10-02] MEDS: FUROSEMIDE 40 MG/4 ML INJ IV SCH (05:45)
[2019-10-02 05:50] LABS: BUN/Creatinine Ratio 28; Blood Urea Nitrogen 25 mg/dL (7-17); Calcium 9.3 mg/dL (8.4-10.2); Hemolysis Index 0
[2019-10-02] MEDS: methylPREDNISolone Sod Succinate 40 MG/1 ML INJ IV SCH ×2 (05:58→14:04)
[2019-10-02] MEDS ORDERED: DEXTROSE 50% IN WATER (25GM) 50 ML SYRINGE IV PRN (06:41)
[2019-10-02] MEDS ORDERED: INSULIN REGULAR, HUMAN 100 UNITS/1 ML SUB-Q ONE (06:50)
[2019-10-02] MEDS: METOPROLOL TARTRATE 50 MG TAB PO SCH (09:08)
[2019-10-02] MEDS: BUDESONIDE 0.5 MG/2 ML NEBU IH SCH (09:16)
[2019-10-02] MEDS ORDERED: ENOXAPARIN 40 MG/0.4 ML INJ SUB-Q SCH (10:00)
[2019-10-02] MEDS ORDERED: HEPARIN 10,000 UNITS/10 ML VIAL ONE (11:40)
[2019-10-02] MEDS ORDERED: HEPARIN/NS 5000 UNIT/500ML 1,000 ML IR ONE (11:40)
[2019-10-02] MEDS ORDERED: SODIUM CHLORIDE 0.9% 500 ML 500 ML ONE (11:41)
[2019-10-02] MEDS ORDERED: fentaNYL 100 MCG/2 ML INJ ONE (11:41)
[2019-10-02] MEDS ORDERED: MIDAZOLAM 2 MG/2 ML INJ ONE (11:41)
[2019-10-02] MEDS ORDERED: ASPIRIN EC 81 MG TAB PO ONE (11:54)
[2019-10-02] MEDS: LIDOCAINE (2%) 20 MG/1 ML VIAL 20 ML MDV INFILTRATI ONE ×2 (12:36→12:56)
[2019-10-02] MEDS: INSULIN LISPRO 100 UNIT/ML SUB-Q SCH ×2 (13:45→18:21)
--- NOTE | 2019-10-02 13:54 | Cardiac Catherization Report ---
REASON FOR PROCEDURE: Congestive heart failure. INDICATIONS: The patient is a 74-year-old woman with paroxysmal atrial fibrillation, who presented with shortness of breath, evidence of congestive heart failure and deterioration in left ventricular systolic function. A right and left heart catheterization was recommended. PROCEDURES: 1. Right heart catheterization. 2. Left heart catheterization. 3. Selective left and right coronary angiography. 4. Left ventricular angiography. 5. Sedation time, start 12:47, and end 13:16. DESCRIPTION OF PROCEDURE: The patient was prepped and draped in a sterile fashion after informed consent. The right femoral artery and vein were both entered using Seldinger technique. A 6-Libyan sheath was placed in the artery and an 8-Libyan sheath in the vein. A Florence-Paulette catheter was then advanced through the venous sheath, to the pulmonary artery position. A pigtail catheter was advanced to the left ventricle. Simultaneous left and right heart filling pressures were recorded. Thermodilution cardiac outputs were measured. The right heart catheter was then pulled back and right heart filling pressures were recorded on pullback. Left ventricle angiography was then performed following which the pigtail catheter was withdrawn across the aortic valve and transaortic valve pressures were recorded. Finally, selective left and right coronary angiography was performed using #4 right and left Bernabe catheters. The catheters were withdrawn, sheath was removed, an Angio-Seal device was used on the arterial site and manual compression was used on the venous site. The patient was returned to the postprocedure unit in stable condition. There were no complications. FINDINGS: HEMODYNAMICS: The mean right atrial pressure was 12-15. Right ventricular pressure 35/15. Pulmonary artery pressure was 33/20. The mean pulmonary artery wedge pressure was 18-20. Left ventricular end-diastolic pressure was 20-25. Ascending aortic pressure was 129/68. There was no significant pressure gradient on pullback across the aortic valve. Cardiac output was 5.3 liters per minute. CORONARY ANGIOGRAPHY: Left main coronary artery was angiographically normal. The left anterior descending artery contained mild irregularities in its mid segment. A large first diagonal branch of the LAD contained an ostial, 50-70% stenosis. Otherwise, no occlusive lesions were noted in the LAD system. The circumflex artery and its obtuse marginal branches were very tortuous, contained mild luminal irregularities, no significant obstructive lesions. The right coronary artery was dominant, and also contained mild luminal irregularities without significant obstructive lesions. The left ventricle was moderately dilated. There was moderate to severe left ventricular systolic dysfunction, diffuse hypokinesis, left ventricular ejection fraction estimated at 35%. CONCLUSION: 1. Mild elevation of right and left heart filling pressures, very mild pulmonary hypertension. 2. Moderate ostial stenosis of the first diagonal branch of the LAD, otherwise essentially normal coronary arteries. 3. Dilated, nonischemic cardiomyopathy, left ventricular ejection fraction 35%. RECOMMENDATION: Aggressive risk factor modification and medical therapy. Nonobstructive ostial branch vessel disease of the diagonal branch is recommended for conservative management. JOB# [id number] CA/NTS
[2019-10-02] MEDS: CITALOPRAM 20 MG TAB PO SCH (14:01)
[2019-10-02] MEDS: guaiFENesin ER 600 MG TAB PO SCH (14:01)
[2019-10-02] MEDS: amLODIPine 10 MG TAB PO SCH (14:01)
[2019-10-02] MEDS: AMIODARONE 200 MG TAB PO SCH (14:02)
[2019-10-02] MEDS: DOCUSATE SODIUM 100 MG CAP PO SCH (14:02)
[2019-10-02] MEDS: ASPIRIN 81 MG TAB CHEW PO SCH (14:03)
[2019-10-02] MEDS: POTASSIUM CHLORIDE ER 10 MEQ TAB PO SCH (14:04)
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
[2019-10-02] MEDS ORDERED: SODIUM CHLORIDE 0.9% 1000 ML 1,000 ML IV SCH (14:15)
[2019-10-02] MEDS: ACETAMINOPHEN 325 MG TAB PO PRN (15:13)
--- NOTE | 2019-10-02 15:53 | Discharge Summary ---
Providers - Providers Date of Admission: 09/29/19 22:56 Date of discharge: 10/02/19 Attending physician: KATIE INTERIANO 09/29/19 22:56 Consult to Physician [CONS] Routine Comment: Consulting Provider: HILARIO HERNÁNDEZ Physician Instructions: Reason For Exam: CHF AE 10/02/19 14:11 Consult to Cardiac Rehabilitation [CONS] Routine Reason For Exam: Cardiac Rehab Evaluation [facility] Reason for admission: sob Condition: Stable Hospital course: Patient is a 74-year-old woman with a history of sick sinus syndrome, prior dual-chamber pacemaker, prior TIA. She is admitted to the hospital with symptoms of shortness of breath, palpitations, cough and orthopnea. Echo demonstrated a moderate severity cardiomyopathy. Ejection fraction was 35-40% on transesophageal echocardiography done a month ago. ECG and telemetry strips on this presentation show a multifocal atrial tachycardia, intermittent bradycardia with ventricular pace on demand. Caerdiology recommended right and left heart catheterization for coronary assessment. The cath revealed only mild pulmonary hypertension, moderate nonobstructive disease of a diagonal branch of the LAD otherwise normal coronary arteries, but a nonischemic cardiomyopathy with ejection fraction approximately 35%. Cardiology recommended medical therapy for nonischemic cardiomyopathy, atrial fibrillation rate control and risk factor modification for nonobstructive coronary disease. Pt will be restarted on anticoagulation and discharged. D/c time 32 min Disposition: DC-01 TO HOME OR SELFCARE Time spent for discharge: 32 Core Measure Documentation - Palliative Care Palliative Care/ Comfort Measures: Not Applicable - Core Measures Any of the following diagnoses?: none Exam - Constitutional Vitals: Temp Pulse Resp BP Pulse Ox 97.7 F 78 19 125/62 99 10/02/19 04:21 10/02/19 14:45 10/02/19 14:45 10/02/19 14:45 10/02/19 14:45 General appearance: Present: no acute distress, well-nourished - EENT Eyes: Present: PERRL ENT: hearing intact, clear oral mucosa - Neck Neck: Present: supple, normal ROM - Respiratory Respiratory effort: normal Respiratory: bilateral: CTA - Cardiovascular Heart Sounds: Present: S1 & S2. Absent: rub, click - Extremities Extremities: pulses symmetrical, No edema Peripheral Pulses: within normal limits - Abdominal General gastrointestinal: Present: soft, non-tender, non-distended, normal bowel sounds Female genitourinary: Present: normal - Integumentary Integumentary: Present: clear, warm, dry - Musculoskeletal Musculoskeletal: gait normal, strength equal bilaterally - Psychiatric Psychiatric: appropriate mood/affect, intact judgment & insight - Neurologic Neurologic: CNII-XII intact, moves all extremities Plan Activity: no restrictions Weight Bearing Status: Weight Bear as Tolerated Follow up with: SALVADOR GR MD [Primary Care Provider] - 7 Days MADHU HERNANDEZ MD [Staff Physician] - 7 Days Prescriptions: Spironolactone [Aldactone] 25 mg PO QDAY #30 tablet amLODIPine 10 mg PO DAILY #30 tab Aspirin [Aspirin BABY CHEW TAB] 81 mg PO DAILY #100 tab.chew Citalopram Hydrobromide [celeXA] 20 mg PO DAILY #30 tab Amiodarone [Cordarone 200 MG TAB] 200 mg PO BID #60 tablet Apixaban [Eliquis] 5 mg PO Q12HR #60 tablet Irbesartan 150 mg PO DAILY #30 tab Potassium Chloride [K-Dur] 10 meq PO QDAY #30 tablet Furosemide [Lasix TAB] 40 mg PO 0600,1800 #60 tablet Metoprolol [Lopressor TAB] 50 mg PO Q24HR #30 tab guaiFENesin ER [Mucinex ER] 600 mg PO BID #30 tablet Budesonide [Pulmicort Respules] 0.5 mg IH Q12HRT #30 nebu Lisinopril [Zestril TAB] 5 mg PO QDAY #30 tablet
[2019-10-02 17:29] VITALS: BP 111/63
[2019-10-02] MEDS ORDERED: FUROSEMIDE 40 MG TAB PO SCH (18:00)
[2019-10-02] MEDS ORDERED: APIXABAN 5 MG TAB PO SCH (22:00)
[2019-10-03] MEDS ORDERED: LISINOPRIL 5 MG TAB PO SCH (10:00)
[2019-10-03] MEDS ORDERED: SPIRONOLACTONE 25 MG TAB PO SCH (10:00)
== END 2019-10-02 19:43 | disposition home or self-care (01) | DRG 286 ==
LOC: ED 19:01 → 4A 22:56
PROVIDERS: ADMIT Internal Medicine; ATTEND Hospitalist
PROC: 5A09357 Assistance with Respiratory Ventilation, Less than 24 Consecutive Hours, Continuous Positive Airway Pressure (ICD-10-PCS; 2019-09-30)
PROC: 5A09357 Assistance with Respiratory Ventilation, Less than 24 Consecutive Hours, Continuous Positive Airway Pressure (ICD-10-PCS; 2019-10-01)
PROC: 4A023N8 Measurement of Cardiac Sampling and Pressure, Bilateral, Percutaneous Approach (ICD-10-PCS; principal; 2019-10-02)
PROC: B2111ZZ Fluoroscopy of Multiple Coronary Arteries using Low Osmolar Contrast (ICD-10-PCS; 2019-10-02)
PROC: B2151ZZ Fluoroscopy of Left Heart using Low Osmolar Contrast (ICD-10-PCS; 2019-10-02)
DX: I11.0 Hypertensive heart disease with heart failure (principal); I50.21 Acute systolic (congestive) heart failure; J44.1 Chronic obstructive pulmonary disease with (acute) exacerbation; I48.92 Unspecified atrial flutter; I42.9 Cardiomyopathy, unspecified; I48.91 Unspecified atrial fibrillation; G47.33 Obstructive sleep apnea (adult) (pediatric); I49.5 Sick sinus syndrome; J45.909 Unspecified asthma, uncomplicated; E78.00 Pure hypercholesterolemia, unspecified; Z79.01 Long term (current) use of anticoagulants; Z79.899 Other long term (current) drug therapy; Z79.82 Long term (current) use of aspirin; Z79.51 Long term (current) use of inhaled steroids; I25.2 Old myocardial infarction; Z86.73 Personal history of transient ischemic attack (TIA), and cerebral infarction without residual deficits; Z95.5 Presence of coronary angioplasty implant and graft; Z88.8 Allergy status to other drugs, medicaments and biological substances
CPT/HCPCS: 36415; 71046; 80048; 80053; 82550; 82553; 82962; 83036; 83880; 84484; 85007; 85025; 85610; 85730; 93005; 93010; 93460; 94640; 94660; 96374; G0378; A9270-GY; C1760; C1894; J1644; J1650; J1815; J1940; J1956; J2250; J2920; J2930; J3010; J7030; J7040; Q9967

== ENCOUNTER 2021-03-11 09:23 | Outpatient (CLI) | payer MEDICARE ==
--- NOTE | 2021-03-11 10:26 | XRay Report ---
XR chest routine 2V INDICATION / CLINICAL INFORMATION: SHORTNESS OF BREATH. COMPARISON: 09/29/2019 FINDINGS: SUPPORT DEVICES: Dual lead left subclavian cardiac pacemaker again noted. HEART /PULMONARY VASCULATURE: There is cardiomegaly with mild primary vasculature congestion. LUNGS / PLEURA: No significant pulmonary or pleural abnormality. No pneumothorax. ADDITIONAL FINDINGS: No significant additional findings. IMPRESSION: Mild CHF/volume overload. Signer Name: Shaheen Griffiths MD Signed: 03/11/2021 10:22 AM Workstation Name: [id number]
[2021-03-11 10:55] LABS: Hematocrit 38.5 % (30.3-42.9); Hemoglobin 12.8 gm/dl (10.1-14.3); Mean Corpuscular HGB Conc 33 % (30-34); Mean Corpuscular Volume 96 fl (79-97); Platelet Count 310 K/mm3 (140-440); Red Blood Count 4.02 M/mm3 (3.65-5.03); Red Cell Distribution Width 15.6 % (13.2-15.2)
--- NOTE | 2021-03-11 11:35 | Nuclear Medicine Report ---
NUCLEAR MEDICINE PERFUSION LUNG SCAN INDICATION / CLINICAL INFORMATION: SHORTNESS OF BREATH. TECHNIQUE: 5.3 mCi of Tc-99m MAA were given by IV. COMPARISON: Chest radiograph dated 03/11/2021. FINDINGS: PERFUSION: No significant perfusion defects. ADDITIONAL FINDINGS: None. IMPRESSION: 1. Low probability for pulmonary embolism. Signer Name: Shaheen Griffiths MD Signed: 03/11/2021 11:31 AM Workstation Name: [id number]
[2021-03-11 12:06] LABS: Alanine Aminotransferase 12 units/L (7-56); Albumin 3.3 g/dL (3.9-5); BUN/Creatinine Ratio 15; Blood Urea Nitrogen 12 mg/dL (7-17); Calcium 9.1 mg/dL (8.4-10.2); HDL Cholesterol 50 mg/dL (40-59); Hemolysis Index 7; LDL Cholesterol,Direct 55 mg/dL (50-130)
== END 2021-03-11 09:24 | disposition home or self-care (01) ==
LOC: NM 09:23
PROVIDERS: ATTEND Internal Medicine
DX: I50.9 Heart failure, unspecified (principal); I10 Essential (primary) hypertension; J44.9 Chronic obstructive pulmonary disease, unspecified; G47.33 Obstructive sleep apnea (adult) (pediatric); Z95.0 Presence of cardiac pacemaker
CPT/HCPCS: 36415; 71046; 78580; 80053; 80061; 84436; 84443; 85027; 85379; A9540